=== PATIENT | female | born 1965 | race Two or more races ===

== ENCOUNTER → 2024-07-23 | Outpatient (CLI) | payer BC, SELFPAY ==
[2024-07-23 11:33] LABS: Basophils % (Auto) 0 % (0-2.5); Eosinophils # (Auto) 0.2 Thou/mm3 (0.0-0.5); Eosinophils % (Auto) 2 % (0-10); Hematocrit 44.2 % (36.0-46.0); Hemoglobin 15.1 g/dL (12.0-16.0); Immature Granulocytes % (Auto) 0 % (0-0); Immature Granulocytes Auto 0.04 Thou/mm3 (0.00-0.00); Lymphocytes # (Auto) 1.9 Thou/mm3 (1.0-4.8); Lymphocytes % (Auto) 16 % (10-50); Mean Corpuscular HGB Conc 34.2 g/dl (31.0-37.0); Mean Corpuscular Hemoglobin 29.7 pg (25.0-35.0); Mean Corpuscular Volume 87 fL (80-100); Monocytes # (Auto) 0.7 Thou/mm3 (0.0-0.8); Monocytes % (Auto) 6 % (0-12); Neutrophils # (Auto) 8.7 Thou/mm3 (1.8-7.7); Neutrophils % (Auto) 76 % (37-80); Nucleated Red Blood Cell % 0 /100 WBC (0); Platelet Count 256 Thou/mm3 (140-440); RDW Standard Deviation 43.7 fL (36.4-46.3); Red Blood Count 5.08 Miln/mm3 (4.00-5.20); White Blood Count 11.6 Thou/mm3 (3.6-11.0)
[2024-07-23 12:05] LABS: Alanine Aminotransferase 210 U/L (10-49); Albumin, Serum 4.3 gm/dL (3.5-5.0); Albumin/Globulin Ratio 1.7 (1.2-2.2); Alkaline Phosphatase 180 U/L (46-116); Amylase 530 U/L (30-118); Anion Gap 9 (7-16); Aspartate Amino Transferase 74 U/L (0-34); BUN/Creatinine Ratio 14 Ratio (12-20); Blood Urea Nitrogen 18 mg/dL (9-23); Calcium 9.4 mg/dL (8.3-10.6); Calcium (Corrected) 9.4 mg/dL (8.5-10.1); Carbon Dioxide 27.6 mMol/L (20.0-31.0); Chloride 101 mMol/L (98-107); Creatinine (Component) 1.3 mg/dL (0.6-1.3); Globulin 2.6 gm/dL (2.3-3.5); Glucose 124 mg/dL (74-106); Lipase 250 U/L (12-53); Osmolality,Calculated 278 (275-295); Potassium 3.4 mMol/L (3.4-5.1); Procalcitonin 0.05 ng/ml (0.0-0.49); Sodium 138 mMol/L (136-145); Total Protein 6.9 gm/dL (5.7-8.2); eGFR 48 See Note
== END | disposition home or self-care (01) ==
LOC: COPL 10:51
PROVIDERS: PCP Family Medicine; Referring Provider Family Medicine; Visit Provider Family Medicine
DX: K80.80 Other cholelithiasis without obstruction (principal)
CPT/HCPCS: 36415; 80053; 82150; 83690; 84145; 85025

== ENCOUNTER → 2024-07-24 | Outpatient (CLI) | payer BC, SELFPAY ==
--- NOTE | 2024-07-24 13:20 | XR_ITS ---
Examination: Abdomen sonogram, complete Date and time of exam: July 24, 2024 1327 hrs. Indications: Epigastric pain 4 days. Technique: Multiple real-time grayscale transabdominal sonographic images of the abdomen have been obtained. Findings: Cholelithiasis, gallbladder wall 0.9 cm Common bile duct 0.6 cm Pancreatic head 3.0 cm Liver 16.6 cm irregular contour fatty liver Normal hepatopedal portal venous oh Patent IVC Right kidney 9.3 cm cortex 1.3 cm Left kidney 10.0 cm 20 p.m. Moderate bilateral renal parenchymal lesion Spleen 11.0 cm Impression: Acute calculus cholecystitis Enlarged common bile duct 0.6 cm, recommend MRCP follow-up
== END | disposition home or self-care (01) ==
PROVIDERS: PCP Family Medicine; Referring Provider Family Medicine; Visit Provider Family Medicine
DX: K80.20 Calculus of gallbladder without cholecystitis without obstruction (principal); K83.8 Other specified diseases of biliary tract
CPT/HCPCS: 76700

== ENCOUNTER → 2024-07-31 | Outpatient (CLI) | payer BC, SELFPAY ==
--- NOTE | 2024-07-31 15:15 | XR_ITS ---
MRI abdomen, without contrast. MRCP Date and time of exam: July 31, 2024 at 1606 hours INDICATIONS: Upper abdominal pain nausea vomiting beginning 3 weeks ago, abdomen sonogram July 24, 2024 enlarged common bile duct 6 mm Technique: Multiple axial and coronal images of the abdomen have been obtained with the Siemens 1.5T MRI scanner. Images obtained included T1 weighted transverse images, T2-weighted transverse images, T2-weighted transverse images fat-suppressed, T2 weighted haste fat suppressed transverse images, T1 weighted images, in and out of phase images, T2-weighted coronal images, breath hold, T2 weighted haze coronal images as well as T2 weighted coronal thick slab images, MRCP. Findings: No intrahepatic biliary tract dilatation. Multiple gallstones Gallbladder wall does not appear thickened Common hepatic duct 6 mm Multiple 1 to 3 mm stones in the common hepatic common bile duct No pancreatic edema No ascites No hydronephrosis Aorta normal size IMPRESSION: Cholelithiasis, negative for cholecystitis Enlarged common bile duct with multiple 1 to 3 mm stones in the common hepatic common bile duct, consider ERCP follow-up
== END | disposition home or self-care (01) ==
LOC: SMRI 14:22
PROVIDERS: Referring Provider Family Medicine; Visit Provider Family Medicine
DX: K80.20 Calculus of gallbladder without cholecystitis without obstruction (principal); K83.8 Other specified diseases of biliary tract
CPT/HCPCS: S8037; 74181

== ENCOUNTER → 2024-08-23 | Outpatient (CLI) | payer BC, SELFPAY ==
[2024-08-23 13:28] LABS: Basophils % (Auto) 1 % (0-2.5); Eosinophils # (Auto) 0.3 Thou/mm3 (0.0-0.5); Eosinophils % (Auto) 4 % (0-10); Hematocrit 42.1 % (36.0-46.0); Immature Granulocytes % (Auto) 0 % (0-0); Immature Granulocytes Auto 0.02 Thou/mm3 (0.00-0.00); Lymphocytes # (Auto) 2.3 Thou/mm3 (1.0-4.8); Lymphocytes % (Auto) 30 % (10-50); Mean Corpuscular HGB Conc 33.3 g/dl (31.0-37.0); Mean Corpuscular Hemoglobin 29.5 pg (25.0-35.0); Mean Corpuscular Volume 89 fL (80-100); Monocytes # (Auto) 0.4 Thou/mm3 (0.0-0.8); Monocytes % (Auto) 5 % (0-12); Neutrophils # (Auto) 4.7 Thou/mm3 (1.8-7.7); Neutrophils % (Auto) 60 % (37-80); Nucleated Red Blood Cell % 0 /100 WBC (0); Platelet Count 258 Thou/mm3 (140-440); RDW Standard Deviation 45.9 fL (36.4-46.3); Red Blood Count 4.74 Miln/mm3 (4.00-5.20); White Blood Count 7.8 Thou/mm3 (3.6-11.0)
[2024-08-23 13:39] LABS: Glucose Estimated Average 108 mg/dL (80-131); Hemoglobin A1C 5.4 % Hgb (4.8-6.0)
[2024-08-23 13:48] LABS: Alanine Aminotransferase 14 U/L (10-49); Albumin, Serum 4.1 gm/dL (3.5-5.0); Albumin/Globulin Ratio 1.6 (1.2-2.2); Alkaline Phosphatase 80 U/L (46-116); Amylase 38 U/L (30-118); Anion Gap 6 (7-16); Aspartate Amino Transferase 15 U/L (0-34); BUN/Creatinine Ratio 17 Ratio (12-20); Bilirubin,Total 0.7 mg/dL (0.3-1.2); Blood Urea Nitrogen 19 mg/dL (9-23); Calcium 9.3 mg/dL (8.3-10.6); Calcium (Corrected) 9.3 mg/dL (8.5-10.1); Carbon Dioxide 27.3 mMol/L (20.0-31.0); Cardiac Risk Estimate 4.7 RATIO (3.7-5.6); Chloride 106 mMol/L (98-107); Cholesterol 215 mg/dL (132-200); Creatinine (Component) 1.1 mg/dL (0.6-1.3); Globulin 2.5 gm/dL (2.3-3.5); Glucose 99 mg/dL (74-106); HDL Cholesterol 46 mg/dL (40-60); LDL Cholesterol,Calculated 144 mg/dL (0-130); Lipase 28 U/L (12-53); Osmolality,Calculated 279 (275-295); Potassium 3.6 mMol/L (3.4-5.1); Sodium 139 mMol/L (136-145); Thyroid Stimulating Hormone 3.73 uIU/mL (0.55-4.78); Total Protein 6.6 gm/dL (5.7-8.2); Triglycerides 127 mg/dL (30-150); eGFR 59 See Note
== END | disposition home or self-care (01) ==
PROVIDERS: PCP Family Medicine; Referring Provider Nurse Practitioner Family; Visit Provider Nurse Practitioner Family
DX: Z00.00 Encounter for general adult medical examination without abnormal findings (principal); K85.10 Biliary acute pancreatitis without necrosis or infection; E11.65 Type 2 diabetes mellitus with hyperglycemia; E78.2 Mixed hyperlipidemia
CPT/HCPCS: 36415; 80053; 80061; 81001; 82043; 82150; 82570; 83036; 83690; 84443; 85025

== ENCOUNTER 2025-02-17 14:01 | Inpatient (IN) | payer BC, SELFPAY ==
[2025-02-17 14:14] VITALS: BP 174/111; PULSE 85; RESP 20; TEMP 37.1; O2SAT 95; BMI 54.8
--- NOTE | 2025-02-17 14:25 | XR_ITS ---
Examination: CT abdomen and pelvis without contrast. Coronal 3-D reconstructions. Sagittal 2-D reconstructions. Date and time of exam:February 17, 2025, 1606 hours INDICATIONS: Upper abdominal pain radiating to the right upper abdomen and vomiting today CTDI: vol (mGy): 22.8 DLP: (mGycm): 1518 Technique: Axial images of the abdomen have been obtained, 3 mm slice thickness Intravenous contrast material has not been administered. Low dose protocols were performed. One or more of the following dose reduction techniques were used; automated exposure control, adjustment of the mA and/or KV according to patient size, use of iterative reconstruction technique. Findings: Fatty infiltration throughout the liver, no focal liver or splenic lesions No definite gallstones Severe pancreatitis, no pseudocyst No pancreatic mass Moderate renal scar formation. Aorta normal size No pericecal inflammatory change No bowel obstruction Colonic diverticulosis, no diverticulitis 28 mm fat-containing umbilical hernia Bilateral ovarian follicular cystic masses Atrophic uterus Urinary bladder intact Moderate osteopenia IMPRESSION: Severe pancreatitis, no pseudocyst
--- NOTE | 2025-02-17 14:28 | PD.EDRME ---
Rapid Medical Screening Exam RME Arrival date/time: 02/17/25 14:01 59-year-old female with a history of pancreatitis presents to the emergency room with a chief complaint of left upper quadrant abdominal pain that radiates to the right upper quadrant and vomiting x 1 day I have greeted and performed a focused initial assessment of this patient. A comprehensive ED assessment and evaluation of the patient, analysis of all test results, and completion of the medical decision making process will be conducted by additional ED providers. Chief Complaint: Abdominal Pain Time Seen by Provider: 02/17/25 14:07 Vital signs: Vital Signs Temperature 98.8 F 02/17/25 14:14 Pulse Rate 85 02/17/25 14:14 Respiratory Rate 20 02/17/25 14:14 Blood Pressure 174/111 H 02/17/25 14:14 Pulse Oximetry (%) 95 02/17/25 14:14 Oxygen Delivery Method Room Air 02/17/25 14:14 Vital signs reviewed by provider: Yes
[2025-02-17 14:52] LABS: Basophils # (Auto) 0.0 Thou/mm3 (0.0-0.2); Basophils % (Auto) 0 % (0-2.5); Eosinophils # (Auto) 0.0 Thou/mm3 (0.0-0.5); Eosinophils % (Auto) 0 % (0-10); Hematocrit 45.5 % (36.0-46.0); Hemoglobin 14.9 g/dL (12.0-16.0); Immature Granulocytes Auto 0.06 Thou/mm3 (0.00-0.00); Lymphocytes # (Auto) 0.7 Thou/mm3 (1.0-4.8); Lymphocytes % (Auto) 5 % (10-50); Mean Corpuscular HGB Conc 32.7 g/dl (31.0-37.0); Mean Corpuscular Hemoglobin 29.8 pg (25.0-35.0); Mean Corpuscular Volume 91 fL (80-100); Monocytes # (Auto) 0.2 Thou/mm3 (0.0-0.8); Monocytes % (Auto) 2 % (0-12); Neutrophils # (Auto) 13.0 Thou/mm3 (1.8-7.7); Neutrophils % (Auto) 93 % (37-80); Nucleated Red Blood Cell # 0.00 Thou/mm3 (0.00-0.00); Nucleated Red Blood Cell % 0 /100 WBC (0); Platelet Count 290 Thou/mm3 (140-440); RDW Standard Deviation 46.2 fL (36.4-46.3); Red Blood Count 5.00 Miln/mm3 (4.00-5.20); White Blood Count 14.0 Thou/mm3 (3.6-11.0)
[2025-02-17 15:23] LABS: Alanine Aminotransferase 34 U/L (10-49); Albumin, Serum 4.3 gm/dL (3.5-5.0); Albumin/Globulin Ratio 1.6 (1.2-2.2); Alkaline Phosphatase 93 U/L (46-116); Anion Gap 7 (7-16); Aspartate Amino Transferase 39 U/L (0-34); BUN/Creatinine Ratio 17 Ratio (12-20); Bilirubin,Total 0.4 mg/dL (0.3-1.2); Blood Urea Nitrogen 19 mg/dL (9-23); Calcium 9.2 mg/dL (8.3-10.6); Calcium (Corrected) 9.2 mg/dL (8.5-10.1); Carbon Dioxide 28.5 mMol/L (20.0-31.0); Chloride 106 mMol/L (98-107); Creatinine (Component) 1.1 mg/dL (0.6-1.3); Estimated Creatinine Clearance 86.6 mL/min (>60); Globulin 2.7 gm/dL (2.3-3.5); Glucose 153 mg/dL (74-106); Lipase 1904 U/L (12-53); Osmolality,Calculated 286 (275-295); Potassium 4.3 mMol/L (3.4-5.1); Sodium 141 mMol/L (136-145); Total Protein 7.0 gm/dL (5.7-8.2); eGFR 59 See Note
[2025-02-17 15:50] VITALS: BP 174/111; PULSE 85
[2025-02-17] MEDS: METOCLOPRAMIDE 5 MG TABLET 10 MG PO (15:50)
[2025-02-17 17:27] VITALS: BP 163/87; PULSE 82; RESP 16; TEMP 36.9; O2SAT 97
--- NOTE | 2025-02-17 17:50 | EDNOTE_ITS ---
ED Abdominal Pain RME/HPI General Chief Complaint: Abdominal Pain Stated complaint: ABD PAIN 9/10, N/V Time seen by provider: 02/17/25 14:07 Arrival date/time: 02/17/25 14:01 RME / HPI RME / HPI narrative: 02/17/25 14:01 59-year-old female with a history of pancreatitis presents to the emergency room with a chief complaint of left upper quadrant abdominal pain that radiates to the right upper quadrant and vomiting x 1 day I have greeted and performed a focused initial assessment of this patient. A comprehensive ED assessment and evaluation of the patient, analysis of all test results, and completion of the medical decision making process will be conducted by additional ED providers. DR. SETH MAIN ED EVALUATION 59 year old female with history of asthma, hypertension, diabetes, hyperlipidemia, pancreatitis (Mach 2024), known cholelithiasis presents to the ED for evaluation of abdominal pain beginning at 07:00 AM today. Described as colicky in sensation that is located most to the left upper abdomen, rating 9/10 in severity. Accompanied by sweats, nausea, and vomiting. Reports taking Zofran at home for nausea/vomiting with some improvement. Patient during last pancreatitis flare was worked up on an outpatient basis and had an MRCP performed showing a stone in the CBD. States she was referred to a surgeon in [place] though did not undergo ERCP during that time. Related Data Previous Rx's ?Medication ?Instructions ?Recorded prednisone 50 mg tablet 50 mg PO QDAY #7 tabs Allergies Allergy/AdvReac Type Severity Reaction Status Date / Time aspirin Allergy Intermediate Hives Verified 02/17/25 14:04 Penicillins Allergy Intermediate Hives Verified 02/17/25 14:04 Review of Systems Review of Systems Systems Reviewed: All systems reviewed, normal except as documented Past Medical History Past Medical History CARDIAC: Positive Cardiac Disorders, Hypercholesterolemia and Hypertension RESPIRATORY: Positive Asthma GASTROINTESTINAL: Positive Gastrointestinal Disorders, Pancreatitis and Gall Bladder Disease GENITOURINARY: Positive Inguinal Hernia (7 YEARS OLD) REPRODUCTIVE: Positive Previous Pregnancies MUSCULOSKELETAL: Positive Arthritis ENT: Positive History of ENT Problems (WEARS GLASSES) ENDOCRINE: Positive Diabetes Mellitus Type 2 PSYCHO/SOCIAL: Positive Anxiety OTHER HISTORY: Positive Hospitalization Surgical History SURGICAL: Positive Abdominal Surgery and Section Social History SMOKING STATUS: Never smoker ED Exam Narrative Physical exam: GENERAL APPEARANCE: alert and oriented x 4, well-developed, well-nourished, morbidly obese HEENT: Normocephalic, atraumatic; pupils equal, round, reactive to light; EOMI; mucous membranes pink, moist; oropharynx clear NECK: Supple LUNGS: CTABL; no wheezes, no rales, no rhonchi HEART: Regular rate, regular rhythm; normal S1, S2; no murmurs ABDOMEN: non distended; normal BS; soft, left sided abdominal tenderness, no guarding, no rebound; no masses, no organomegaly, no hernia BACK: no CVA tenderness EXTREMITIES: atraumatic; no edema NEUROLOGIC: awake; alert and oriented x4; cranial nerves II-XII grossly intact; no focal sensory or motor deficits PSYCHIATRIC: appropriate mood and affect SKIN: warm, dry, normal color; no rashes Course Course Course Narrative: 1800p: I spoke with hospitalist team B for admission. Quality Measures none Orders Category Date Time Status Insert IV NOW Care 02/17/25 17:[address] abdomen pelvis wo con Stat Exams 02/17/25 14:25 Completed CBC Stat Lab 02/17/25 14:34 Completed CMP [Comprehensive Metabolic Panel] Stat Lab 02/17/25 14:34 Completed Lipase Stat Lab 02/17/25 14:34 Completed UA [Urinalysis] Stat Lab 02/17/25 14:25 Ordered Urine Culture Stat Lab 02/17/25 14:25 Ordered Metoclopramide [Reglan] Med 02/17/25 14:25 Discontinued 10 mg PO X1 ONE cloNIDine HCL [Catapres] Med 02/17/25 14:28 Discontinued 0.1 mg PO X1 ONE Vital Signs Vital signs: Vital Signs Temperature 98.8 F 02/17/25 14:14 Pulse Rate 85 02/17/25 14:14 Respiratory Rate 20 02/17/25 14:14 Blood Pressure 174/111 H 02/17/25 14:14 Pulse Oximetry (%) 95 02/17/25 14:14 Oxygen Delivery Method Room Air 02/17/25 14:14 Pulse ox is 95% on room air which is adequate. Abdominal Pain MDM MDM Narrative MDM Narrative:: Amber Castellano am scribing for and in the presence of Dr. Seth. Patient data External records reviewed:: [facility] previous records Clinical information provided by:: patient Social determinants that could affect healthcare access:: none Patient has the following chronic illnesses:: asthma, hypertension, diabetes, hyperlipidemia, pancreatitis (2024), known cholelithiasis How is presenting disease/condition affected by chronic disease/condition?: exacerbated by Evaluation data The following diagnostics were reviewed and interpreted by me:: lab results and radiology exam(s) Lab and/or radiology exams considered but not ordered:: None Interpretation Summary: Ordering Physician: Lee Murrell Date of Service: 02/17/25 Procedure(s): CT abdomen pelvis wo con Accession Number(s): [id number] cc: Guru Allen MD; Lee Murrell; Bhanu Booth MD~ Examination: CT abdomen and pelvis without contrast. Coronal 3-D reconstructions. Sagittal 2-D reconstructions. Date and time of exam:February 17, 2025, 1606 hours INDICATIONS: Upper abdominal pain radiating to the right upper abdomen and vomiting today CTDI: vol (mGy): 22.8 DLP: (mGycm): 1518 Technique: Axial images of the abdomen have been obtained, 3 mm slice thickness Intravenous contrast material has not been administered. Low dose protocols were performed. One or more of the following dose reduction techniques were used; automated exposure control, adjustment of the mA and/or KV according to patient size, use of iterative reconstruction technique. Findings: Fatty infiltration throughout the liver, no focal liver or splenic lesions No definite gallstones Severe pancreatitis, no pseudocyst No pancreatic mass Moderate renal scar formation. Aorta normal size No pericecal inflammatory change No bowel obstruction Colonic diverticulosis, no diverticulitis 28 mm fat-containing umbilical hernia Bilateral ovarian follicular cystic masses Atrophic uterus Urinary bladder intact Moderate osteopenia IMPRESSION: Severe pancreatitis, no pseudocyst Dictated By: Bhanu Booth MD Signed By: <Electronically signed by Bhanu Booth MD in OV> 02/17/25 1701 Medications / Prescriptions Medications or Prescriptions considered but not ordered:: None Medication administrations:: Medication Administration History Discontinued Medications Clonidine (Clonidine Hcl 0.1 Mg Tablet) 0.1 mg PO X1 ONE Stop: 02/17/25 14:29 Last Admin: 02/17/25 15:50 Dose: 0.1 mg Documented By: OA Metoclopramide HCl (Metoclopramide 5 Mg Tablet) 10 mg PO X1 ONE Stop: 02/17/25 14:26 Last Admin: 02/17/25 15:50 Dose: 10 mg Documented By: OA See above Consultations Consultation(s) initiated? (list below): Yes Consultation #1 (Physician, Specialty, Details): See course Diagnosis Differential diagnosis abdominal pain: abdominal pain and other (pancreatitis ) Most likely diagnosis given after review of the tests above:: Acute pancreatitis Admission Indicated Admission indicated?: indicated Admission Request Was there a request for admission?: Yes Admission Attestation Admission request attestation: Discussed case with [] from Hospitalist service regarding admission. Discussed patients ED course, exam findings, labs, and radiology results. The Hospitalist [agrees,declines] to accept the patient for admission. Disposition Plan Disposition Plan: Admit Discharge Plan Plan Patient Disposition: Admit Acute Care w/in Hospital Prescriptions/Referrals Prescriptions/Med Rec: No Action prednisone 50 mg tablet 50 mg PO QDAY Qty: 7 0RF Referrals: Guru Allen MD [Primary Care Provider, Family Practice] - In 1 week Problem List Clinical Impression: Acute pancreatitis Patient/Caregiver Discharge Instructions Print Language: Yi Stand Alone Forms: Irene Award Info., Patient Portal Info Letter
[2025-02-17 18:05] VITALS: BP 134/85; PULSE 83; RESP 22; TEMP 36.6; O2SAT 100
[2025-02-17] MEDS: HYDROmorphone INJ 2 MG/ML VIAL 1 MG IVP (18:10)
[2025-02-17] MEDS: SODIUM CHLORIDE 0.9% 1000 ML 1,000 ML 999 ML IV (18:10)
[2025-02-17] MEDS: ONDANSETRON INJ 2 MG/ML INJ 2 ML 4 MG IVP (18:10)
--- NOTE | 2025-02-17 18:33 | XR_ITS ---
Examination: Abdomen sonogram, Limited Date and time of exam: February 17 thousand 25, 1904 hrs. Indications: Right upper abdominal pain today with nausea vomiting, history pancreatitis Technique: Real-time isabel scale transabdominal sonographic images of the upper abdomen obtained. Findings: Multiple gallstones Normal gallbladder wall 0.2 cm Normal common bile duct 0.5 cm Pancreatic head 4.7 cm Liver 17.1 cm no focal liver lesions Normal hepatopedal portal venous oh Patent IVC Impression: Cholelithiasis, negative for cholecystitis No common bile duct stones Enlarged pancreas consistent with the diagnosis of severe pancreatitis on the CT abdomen study today Moderate hepatomegaly
--- NOTE | 2025-02-17 18:40 | PD.RESHP ---
Documentation for date of: 02/17/25 [facility] History of Present Illness History of present illness: 59-year-old female with a significant history of asthma, hypertension, diabetes, hyperlipidemia, and known cholelithiasis, who presents to the ED with acute-onset abdominal pain that began this morning around 7:00 AM. The pain is described as colicky and burning, initially rated 9/10 in severity but currently 6/10. It is primarily localized to the left upper quadrant, and has been consistent since its onset. The pain is associated with nausea, vomiting (8 times), chills, and sweats. She self-treated with Zofran this morning, but reports no improvement. Her last meal was at 8 PM last night, and her last bowel movement was this morning. She reports that lying on her right side offers relief. She reports a recent history of pancreatitis in July 2024, which, upon outpatient workup including an MRCP, revealed a stone in the common bile duct. She states she was informed by general surgury at [facility] that she needed an ERCP for follow-up but has not yet undergone the procedure. ED course: On presentation patient had vitals of 98.4 temperature, blood pressure 174/111, pulse 85, resp 20, 95% on room air. CT Abdo/pelvis showed severe pancreatitis, no pseudocyst. Notable labs include WBC 14.0, hemoglobin 14.9, sodium 141, potassium 4.3, creatinine 1.1, calcium 9.2, AST 39, ALT 34, lipase 1904. In ED patient was given metoclopramide 10 mg x 1, clonidine 0.1 mg x 1, Dilaudid 1 mg IV x 1, ondansetron 4 mg IV x 1, 1 L normal saline fluid bolus was given. Past medical history: As stated above. Allergies: Aspirin, penicillin Family history: Noncontributory Social history: No alcohol use, no smoking, no illicit drug use. Patient admitted for management of acute pancreatitis. Review of Systems Review of Systems Narrative Review of Systems: All systems reviewed negative unless stated otherwise above. Exam Vital Signs Temp Pulse Resp BP Pulse Ox O2 Del Method 97.9 F 83 22 H 134/85 H 100 Room Air 02/17/25 18:05 02/17/25 18:05 02/17/25 18:05 02/17/25 18:05 02/17/25 18:05 02/17/25 18:05 Narrative Exam General appearance: Alert and oriented x 4, well-developed, well-nourished, morbidly obese. HEENT: Normocephalic, atraumatic; pupils equal, round, reactive to light; EOMI; mucous membranes pink, moist; oropharynx clear. Lungs: CTABL; no wheezes, no rales, no rhonchi. Heart: Regular rate, regular rhythm; normal S1, S2; no murmurs. Abdomen: Non distended; normal BS; soft, left sided abdominal tenderness, no guarding, no rebound; no masses, no organomegaly, no hernia. Back: No CVA tenderness. Extremities: Atraumatic; no edema. Neurologic: Awake; alert and oriented x 4; cranial nerves II-XII grossly intact; no focal sensory or motor deficits; moving all 4 limbs Psychiatric: Appropriate mood and affect. Skin: Warm, dry, normal color; no rashes. Results: Labs 02/18/25 05:14 02/18/25 05:14 Labs: Short CBC 02/17/25 Range/Units 14:34 WBC 14.0 H (3.6-11.0) Thou/mm3 Hgb 14.9 (12.0-16.0) g/dL Hct 45.5 (36.0-46.0) % Plt Count 290 (140-440) Thou/mm3 BMP 02/17/25 14:34 Sodium 141 Potassium 4.3 Chloride 106 Carbon Dioxide 28.5 BUN 19 Creatinine 1.1 Glucose 153 H Calcium 9.2 Liver Function 02/17/25 Range/Units 14:34 Total Bilirubin 0.4 (0.3-1.2) mg/dL AST 39 H (0-34) U/L ALT 34 (10-49) U/L Alkaline Phosphatase 93 (46-116) U/L Albumin 4.3 (3.5-5.0) gm/dL Quality Measures Quality Measures none Medications Home Medications and Allergies Home Medications ?Medication ?Instructions ?Recorded ?Confirmed ?Type hydrochlorothiazide 25 mg tablet 25 mg PO DAILY Hypertension 02/17/25 02/17/25 History losartan 50 mg tablet 50 mg PO DAILY Hypertension 02/17/25 02/17/25 History Allergies Allergy/AdvReac Type Severity Reaction Status Date / Time aspirin Allergy Intermediate Hives Verified 02/17/25 14:04 Penicillins Allergy Intermediate Hives Verified 02/17/25 14:04 Visit Medications Albuterol/Ipratropium (Albuterol/Ipratropium (Duoneb) Rt Lin 3 Ml Nebu) 3 ml INH Q6HRRT PRN PRN Reason: WHEEZING Stop: 03/19/25 18:59 Dextrose (Dextrose 50%-Water Inj 50 Ml Syringe) 25 ml IV Q15MIN PRN PRN Reason: BG 50-70 responsive npo pt Stop: 03/19/25 18:31 Dextrose (Dextrose 50%-Water Inj 50 Ml Syringe) 50 ml IV Q15MIN PRN PRN Reason: BG <50 OR BG <70 & pt unresponsive Stop: 03/19/25 18:31 Glucagon (Glucagon Inj 1 Mg Vial) 1 mg IM Q15MIN PRN PRN Reason: BG <70, and no IV access Hydromorphone HCl (Hydromorphone Inj 2 Mg/Ml Vial) 0.5 mg IVP Q6HR PRN PRN Reason: Pain 7-9 Stop: 02/22/25 18:03 Sodium Chloride (Ns) 1,000 mls @ 999 mls/hr IV .Q1H1M ONE Stop: 02/17/25 19:01 Last Admin: 02/17/25 18:10 Dose: 999 mls/hr Lactated Ringer's (Lactated Ringers) 1,000 mls @ 200 mls/hr IV .Q5H MARLENI Stop: 02/18/25 04:33 Insulin Human Lispro (Insulin Lispro (Admelog) 1 Unit/0.01 Ml Unit) 0 unit SC Q6HR MARLENI; Protocol Stop: 03/20/25 00:00 Labetalol HCl (Labetalol Inj 5 Mg/Ml Vial 20 Ml) 10 mg IVP Q6HR PRN PRN Reason: Systolic BP >180 and HR >75 Stop: 03/19/25 18:34 Morphine Sulfate (Morphine Sulf Inj 4 Mg/Ml Vial) 0.5 mg IVP Q6HR PRN PRN Reason: Pain 4-6 Ondansetron HCl (Ondansetron Inj 2 Mg/Ml Inj 2 Ml) 4 mg IVP Q6H PRN; Protocol PRN Reason: NAUSEA OR VOMITING Stop: 03/19/25 18:03 Discontinued Medications Clonidine (Clonidine Hcl 0.1 Mg Tablet) 0.1 mg PO X1 ONE Stop: 02/17/25 14:29 Last Admin: 02/17/25 15:50 Dose: 0.1 mg Hydromorphone HCl (Hydromorphone Inj 2 Mg/Ml Vial) 1 mg IVP X1 ONE Stop: 02/17/25 17:59 Last Admin: 02/17/25 18:10 Dose: 1 mg Metoclopramide HCl (Metoclopramide 5 Mg Tablet) 10 mg PO X1 ONE Stop: 02/17/25 14:26 Last Admin: 02/17/25 15:50 Dose: 10 mg Ondansetron HCl (Ondansetron Inj 2 Mg/Ml Inj 2 Ml) 4 mg IVP X1 ONE; Protocol Stop: 02/17/25 17:59 Last Admin: 02/17/25 18:10 Dose: 4 mg Assessment & Plan Plan 59-year-old female with a significant history of asthma, hypertension, diabetes, hyperlipidemia, and known cholelithiasis presents to presents to the ED with acute-onset abdominal pain that started in AM. Patient admitted for the management of acute pancreatitis. #Acute pancreatitis, recurrent Lipase 1903 CT abdomen showed severe pancreatitis, no pseudocyst WBC 14 Initial abdominal pain 9 out of 10 which has improved to 6 out of 10 in ED after pain meds Known history of cholelithiasis Last acute pancreatitis episode in July 2024 Plan ? LR at 200 mL an hour ? Hydromorphone 0.5 IV every 6 hours as needed for pain 7-9 ? Morphine 0.5 mg IV every 6 hours as needed for pain 4-6 ? Zofran as needed ? Liver ultrasound ordered ? Lipid panel in a.m. #Non-insulin type 2 diabetes mellitus Last A1c 5.4 on 09/06 Not on any medications, just lifestyle intervention Plan ? Glucose checks ? Order sliding scale insulin if necessary #Hypertension Patient's home meds include hydrochlorothiazide 25 mg daily and losartan 50 mg daily Plan ? Labetalol 10 mg IV every 6 hours as needed ? Resume home medications when appropriate and not n.p.o. Health Maintenance: Diet: N.p.o. GI prophylaxis: None DVT prophylaxis: None at this time, reassess tmrw Antibiotics: None needed CODE STATUS: Full Disposition: MedSurg Case discussed with my attending Dr. Garrett, and senior resident, Dr. Yasemin Wilkinson MD PGY-1 Attending Provider Attestation/Addendum I attest that I was physically present for the evaluation, physical examination, lab and imaging review of the patient with the residents. I discussed the case with the residents and agree with the findings and plans of care as documented above. After examination of the patient and review of the clinical data I feel that this patient needs admission to the hospital for further treatment/evaluation Patient is a 59 years old female with past medical history of asthma, hypertension, diabetes, hyperlipidemia, cholelithiasis who presented to the ED with complaint of abdominal pain, mostly around left upper quadrant with associated nausea and vomiting along with chills. She took some Zofran without help. In the ED, Initial blood pressure was 170/111, rest of the vitals were within normal limits. CT abdomen/pelvis was done, showed severe pancreatitis, WBC count was 14.0, lipase level 1904. We will admit the patient for management of acute pancreatitis, we will start her on aggressive IV hydration, analgesic regimen, antiemetics. We will obtain liver ultrasound. Keeping patient n.p.o. until nausea resolves, once patient's nausea is better, we will start her on diet and advance slowly. Started on insulin regimen for diabetes. We will also resume home antihypertensives once reconciled. [place] Garrett MD
[2025-02-17 19:33] VITALS: BMI 56.7
[2025-02-17 20:00] VITALS: BP 161/82; PULSE 78; RESP 18; TEMP 36.2; O2SAT 98
[2025-02-17] MEDS: RINGERS LACTATED 1000 ML 1,000 ML 200 ML IV (20:10)
[2025-02-17] MEDS: MORPHINE SULF INJ 4 MG/ML VIAL 0.5 MG IVP (21:49)
[2025-02-17] MEDS: METOCLOPRAMIDE INJ 5 MG/ML VIAL 2 ML 10 MG IVP (21:50)
[2025-02-18] VITALS (9 sets, daily range): BP systolic 106–169; BP diastolic 67–95; PULSE 75–84; RESP 17–20; TEMP 36.5–37.2; O2SAT 94–98
[2025-02-18 04:55] LABS: Collection Type, Urine Clean Catch
[2025-02-18 05:15] LABS: Bacteria,Urine Rare; Bilirubin,Urine Negative (Negative); Blood,Urine Negative (Negative); Clarity,Urine Clear (Clear/Hazy); Color,Urine Yellow (Lt Yel-Yel); Glucose, Urine Negative (Negative); Hyaline Casts,Urine < 1 /hpf (0-1); Ketones,Urine Negative (Negative); Leukocyte Esterase,Urine Negative (Negative); Nitrite,Urine Negative (Negative); PH,Urine 5.5 (5.0-7.0); Protein,Urine Negative (Neg - Trace); RBC,Urine 1 /hpf (0-3); Specific Gravity,Urine 1.029 (1.001-1.035); Squamous Epithelial Cell,Urine 1 /hpf (0-5); Urobilinogen,Urine Negative mg/dL (0.0-1.0); WBC,Urine 1 /hpf (0-5)
[2025-02-18] MEDS: HYDROmorphone INJ 2 MG/ML VIAL 0.5 MG IVP ×3 (05:31→22:16)
[2025-02-18] MEDS: RINGERS LACTATED 1000 ML 1,000 ML 200 ML IV ×3 (05:31→19:37)
[2025-02-18 05:51] LABS: Basophils # (Auto) 0.0 Thou/mm3 (0.0-0.2); Basophils % (Auto) 0 % (0-2.5); Eosinophils # (Auto) 0.0 Thou/mm3 (0.0-0.5); Eosinophils % (Auto) 0 % (0-10); Hematocrit 38.6 % (36.0-46.0); Hemoglobin 12.7 g/dL (12.0-16.0); Immature Granulocytes Auto 0.05 Thou/mm3 (0.00-0.00); Lymphocytes # (Auto) 1.3 Thou/mm3 (1.0-4.8); Lymphocytes % (Auto) 11 % (10-50); Mean Corpuscular HGB Conc 32.9 g/dl (31.0-37.0); Mean Corpuscular Hemoglobin 30.5 pg (25.0-35.0); Mean Corpuscular Volume 93 fL (80-100); Monocytes # (Auto) 0.6 Thou/mm3 (0.0-0.8); Monocytes % (Auto) 5 % (0-12); Neutrophils # (Auto) 9.9 Thou/mm3 (1.8-7.7); Neutrophils % (Auto) 83 % (37-80); Nucleated Red Blood Cell # 0.00 Thou/mm3 (0.00-0.00); Nucleated Red Blood Cell % 0 /100 WBC (0); Platelet Count 244 Thou/mm3 (140-440); RDW Standard Deviation 47.7 fL (36.4-46.3); Red Blood Count 4.16 Miln/mm3 (4.00-5.20); White Blood Count 12.0 Thou/mm3 (3.6-11.0)
[2025-02-18 06:25] LABS: Alanine Aminotransferase 21 U/L (10-49); Albumin, Serum 3.5 gm/dL (3.5-5.0); Albumin/Globulin Ratio 1.5 (1.2-2.2); Alkaline Phosphatase 70 U/L (46-116); Anion Gap 8 (7-16); Aspartate Amino Transferase 19 U/L (0-34); BUN/Creatinine Ratio 14 Ratio (12-20); Bilirubin,Total 0.5 mg/dL (0.3-1.2); Blood Urea Nitrogen 14 mg/dL (9-23); Calcium 8.7 mg/dL (8.3-10.6); Calcium (Corrected) 9.1 mg/dL (8.5-10.1); Carbon Dioxide 27.6 mMol/L (20.0-31.0); Cardiac Risk Estimate 4.6 RATIO (3.7-5.6); Chloride 106 mMol/L (98-107); Cholesterol 187 mg/dL (132-200); Creatinine (Component) 1.0 mg/dL (0.6-1.3); Estimated Creatinine Clearance 97.3 mL/min (>60); Globulin 2.4 gm/dL (2.3-3.5); Glucose 124 mg/dL (74-106); HDL Cholesterol 41 mg/dL (40-60); LDL Cholesterol,Calculated 120 mg/dL (0-130); Magnesium 1.8 mg/dL (1.6-2.6); Osmolality,Calculated 284 (275-295); Phosphorous 3.3 mg/dL (2.4-5.1); Potassium 3.7 mMol/L (3.4-5.1); Sodium 142 mMol/L (136-145); Thyroid Stimulating Hormone 3.36 uIU/mL (0.55-4.78); Total Protein 5.9 gm/dL (5.7-8.2); Triglycerides 128 mg/dL (30-150); eGFR > 60 See Note
[2025-02-18] MEDS: ONDANSETRON INJ 2 MG/ML INJ 2 ML 4 MG IVP (12:30)
--- NOTE | 2025-02-18 13:08 | PC.NURSE ---
Made MD cabrera aware of pts current bp at 156/96-76 HR and about restarting her diuretic, per pt is receiving too much iv fluids and making her sick with abd pain and nauseated. Per MD gillis continue with fluids. Pt is having pain at this time Dilaudid given, and zofran for nausea.
--- NOTE | 2025-02-18 13:29 | ESCONSULT_ITS ---
HPI Consult details Consult date: 02/18/25 Reason for consultation narrative: Gallstone pancreatitis History of present illness: 59-year-old morbidly obese female with history of gallstone was admitted with worsening abdominal pain with nausea and vomiting. Pain is in epigastric and right upper quadrant rating to her back. She denies fever, chills, jaundice or discoloration in urine or stool. Her liver enzymes are unremarkable. She was noted to have multiple gallstones and CT scan revealed severe pancreatitis. MRCP revealed possible 1 to 3 mm common hepatic stones Review of Systems Constitutional Constitutional: Denies chills and Denies fever(s) Cardiovascular Cardiovascular: Denies chest pain Respiratory Respiratory: Denies cough Gastrointestinal Gastrointestinal: Reports abdominal pain, Reports nausea and Reports vomiting Genitourinary Genitourinary: Denies difficulty voiding Hematologic/Lymphatic Hematologic/Lymphatic: Denies easy bleeding and Denies easy bruising Past Medical History Surgical History OTHER SURGICAL HX: , inguinal hernia repair Social History SMOKING STATUS: Never smoker SUBSTANCE USE: does not use ALCOHOL: Never Meds Home Medications and Allergies Home Medications ?Medication ?Instructions ?Recorded ?Confirmed ?Type hydrochlorothiazide 25 mg tablet 25 mg PO DAILY Hypert ension 02/17/25 02/17/25 History losartan 50 mg tablet 50 mg PO DAILY Hypertension 02/17/25 02/17/25 History Allergies Allergy/AdvReac Type Severity Reaction Status Date / Time aspirin Allergy Intermediate Hives Verified 02/17/25 14:04 Penicillins Allergy Intermediate Hives Verified 02/17/25 14:04 Exam Vital Signs Temp Pulse Resp BP Pulse Ox O2 Del Method 98.4 F 76 17 156/93 H 98 Room Air 02/18/25 12:00 02/18/25 12:00 02/18/25 12:00 02/18/25 12:00 02/18/25 12:00 02/18/25 12:00 Constitutional Constitutional: no acute distress and morbidly obese Routine Abdominal Exam Comments: Abdomen is soft and nondistended. She has tenderness to palpation in the epigastric and right upper quadrant, no rebound tenderness or peritonitis at this time Results Results: Laboratory Laboratory results: results reviewed Results: Imaging Imaging narrative: Abdominal ultrasound, CT scan of abdomen and pelvis and MRCP images reviewed, radiologist interpretation noted Assessment & Plan Problem List (1) Biliary acute pancreatitis without necrosis or infection: Status: Acute Plan Keep patient n.p.o. with IV fluids. Will plan for laparoscopic possible open cholecystectomy with cholangiogram when pancreatitis improves. Consult GI for possible ERCP
--- NOTE | 2025-02-18 14:28 | ESPR_ITS ---
<Statement entered by Reyes Hazel MD - 02/18/25 15:59> I have personally seen and examined the patient. I agree with the medical student's assessment and plan as documented below. Reyes Hazel DO PGY-2 Internal Medicine - [facility] Documentation for date of: 02/18/25 Subjective Subjective Interval history: Patient complained of abdominal pain overnight. Today she was hypertensive and complained of headaches with nausea. She was not fully able to tolerate clear liquids due to ongoing abdominal pain. Denies fever, chills or vomiting. Exam Vital Signs Temp Pulse Resp BP Pulse Ox O2 Del Method 98.4 F 76 17 156/93 H 98 Room Air 02/18/25 12:00 02/18/25 12:00 02/18/25 12:00 02/18/25 12:00 02/18/25 12:00 02/18/25 12:00 Narrative Exam General: Patient alert, oriented, in no acute distress. HEENT: Normocephalic, atraumatic. PERRLA, EOMI, no scleral icterus or conjunctival injection. Oropharynx clear, mucous membranes moist. No JVD, no carotid bruits. Neck: Supple, trachea midline, no thyromegaly or lymphadenopathy. Cardiac: Regular rate and rhythm, normal S1/S2, no murmurs, rubs, or gallops. Peripheral pulses 2+ and symmetric. No peripheral edema. Lungs: Normal effort, clear to auscultation bilaterally, no wheezes, rales, or rhonchi. Abdomen: Morbidly obese, soft, nondistended, with tenderness over the left upper quadrant and epigastric area. No rebound or guarding noted. Normoactive bowel sounds present. No hepatosplenomegaly appreciated. Extremities: Warm, well-perfused, no clubbing, cyanosis, or edema. Full range of motion, no joint tenderness. Skin: Warm, dry, intact. No rashes, lesions, or ecchymoses. Neuro: Alert and oriented ?3. Speech fluent. Cranial nerves II?XII grossly intact. Motor 5/5 throughout, sensation intact. Objective Labs 02/18/25 05:14 02/18/25 05:14 Labs: Laboratory Results - last 24 hr 02/17/25 02/18/25 02/18/25 14:34 04:34 05:14 WBC 14.0 H 12.0 H RBC 5.00 4.16 Hgb 14.9 12.7 D Hct 45.5 38.6 MCV 91 93 MCH 29.8 30.5 MCHC 32.7 32.9 RDW Std Deviation 46.2 47.7 H Plt Count 290 244 D Neut % (Auto) 93 H 83 H Lymph % (Auto) 5 L 11 [place] % (Auto) 2 5 Eos % (Auto) 0 0 Baso % (Auto) 0 0 Neut # (Auto) 13.0 H 9.9 H Lymph # (Auto) 0.7 L 1.3 [place] # (Auto) 0.2 0.6 Eos # (Auto) 0.0 0.0 Baso # (Auto) 0.0 0.0 Immature Gran # (Auto) 0.06 H 0.05 H Absolute Nucleated RBC 0.00 0.00 Immature Gran % 0 0 Nucleated RBC % 0 0 Sodium 141 142 Potassium 4.3 3.7 D Chloride 106 106 Carbon Dioxide 28.5 27.6 Anion Gap 7 8 BUN 19 14 Creatinine 1.1 1.0 Estim Creat Clear Calc 86.6 97.3 eGFR 59 L > 60 BUN/Creatinine Ratio 17 14 Glucose 153 H 124 H Calculated Osmolality 286 284 Calcium 9.2 8.7 Corrected Calcium 9.2 9.1 Phosphorus 3.3 Magnesium 1.8 Total Bilirubin 0.4 0.5 AST 39 H 19 ALT 34 21 Alkaline Phosphatase 93 70 D Total Protein 7.0 5.9 Albumin 4.3 3.5 D Globulin 2.7 2.4 Albumin/Globulin Ratio 1.6 1.5 Triglycerides 128 Cholesterol 187 LDL Cholesterol, Calc 120 HDL Cholesterol 41 Cholesterol/HDL Ratio 4.6 Lipase 1904 H* TSH 3.36 Ur Collection Type Clean Catch Urine Color Yellow Urine Clarity Clear Urine pH 5.5 Ur Specific [place] 1.029 Urine Protein Negative Urine Glucose (UA) Negative Urine Ketones Negative Urine Blood Negative Urine Nitrite Negative Urine Bilirubin Negative Urine Urobilinogen (Auto) Negative Ur Leukocyte Esterase Negative Urine RBC 1 Urine WBC 1 Ur Squamous Epith Cells 1 Urine Bacteria Rare Hyaline Casts < 1 Quality Measures Quality Measures none Assessment & Plan Assessment Current Active Medications: Generic Name Dose Route Start Last Admin Trade Name Freq PRN Reason Stop Dose Admin Albuterol/Ipratropium 3 ml 02/17/25 18:33 Albuterol/Ipratropium (Duoneb) Rt Lin 3 Ml Nebu INH 03/19/25 18:59 Q6HRRT PRN WHEEZING Dextrose 25 ml 02/17/25 18:32 Dextrose 50%-Water Inj 50 Ml Syringe IV 03/19/25 18:31 Q15MIN PRN BG 50-70 responsive npo pt Dextrose 50 ml 02/17/25 18:32 Dextrose 50%-Water Inj 50 Ml Syringe IV 03/19/25 18:31 Q15MIN PRN BG <50 OR BG <70 & pt unresponsive Glucagon 1 mg 02/17/25 18:32 Glucagon Inj 1 Mg Vial IM Q15MIN PRN BG <70, and no IV access Hydromorphone HCl 0.5 mg 02/17/25 18:04 02/18/25 12:29 Hydromorphone Inj 2 Mg/Ml Vial IVP 02/22/25 18:03 0.5 mg Q6HR PRN Administration Pain 7-9 Lactated Ringer's 1,000 mls @ 200 mls/hr 02/18/25 10:34 02/18/25 10:39 Lactated Ringers IV 02/18/25 20:33 200 mls/hr .Q5H MARLENI Administration Insulin Human Lispro 0 unit 02/18/25 00:00 02/18/25 13:13 Insulin Lispro (Admelog) 1 Unit/0.01 Ml Unit SC 03/20/25 00:00 Not Given Q6HR MARLENI Protocol Labetalol HCl 10 mg 02/17/25 18:35 Labetalol Inj 5 Mg/Ml Vial 20 Ml IVP 03/19/25 18:34 Q6HR PRN Systolic BP >180 and HR >75 Losartan Potassium 50 mg 02/18/25 10:38 Losartan Potassium 25 Mg Tablet PO 03/20/25 10:34 DAILY MARLENI Morphine Sulfate 0.5 mg 02/17/25 18:32 02/17/25 21:49 Morphine Sulf Inj 4 Mg/Ml Vial IVP 0.5 mg Q6HR PRN Administration Pain 4-6 Ondansetron HCl 4 mg 02/17/25 18:04 02/18/25 12:30 Ondansetron Inj 2 Mg/Ml Inj 2 Ml IVP 03/19/25 18:03 4 mg Q6H PRN Administration NAUSEA OR VOMITING Protocol Plan 59-year-old female with a significant history of asthma, hypertension, diabetes, hyperlipidemia, and known cholelithiasis presents with acute-onset abdominal pain admitted for evaluation and management of gallstone pancreatitis. #Gallstone Pancreatitis Liver ultrasound revealed cholelithiasis without evidence of cholecystitis or common bile duct stones. The pancreas appeared enlarged, consistent with findings of severe pancreatitis noted on CT abdomen. Additionally, moderate hepatomegaly was observed. The patient?s WBC count has improved from 14 to 12, indicating a downtrending inflammatory response. Laboratory studies show markedly elevated lipase of 1904. The patient has known history of cholelithiasis and prior episode of acute pancreatitis in July 2024. Findings support the diagnosis of gallstone pancreatitis in the setting of known cholelithiasis. Will defer GI consult for ERCP at this time given normal common bile duct findings and absence of choledocholithiasis on imaging. Plan ? Continue LR at 200 mL/hour ? Hydromorphone 0.5 IV every 6 hours as needed for pain 7-9 ? Morphine 0.5 mg IV every 6 hours as needed for pain 4-6 ? Zofran as needed ? General surgery recs: Continue IV Fluids, Keep NPO, plan for laparoscopic possible open cholecystectomy with cholangiogram when pancreatitis improves, consult GI for ERCP. #Non-insulin type 2 diabetes mellitus Last A1c 5.4 on 09/06 Not on any medications, just lifestyle intervention Plan ? Glucose checks ? Order sliding scale insulin if necessary #Hypertension Patient's home meds include hydrochlorothiazide 25 mg daily and losartan 50 mg daily Plan ? Labetalol 10 mg IV every 6 hours as needed ? Resume Losartan 50 mg daily Health Maintenance: Diet: NPO GI prophylaxis: None DVT prophylaxis: None at this time, reassess tmrw Antibiotics: None needed CODE STATUS: Full Disposition: MedSurg Attending Provider Attestation/Addendum I attest that I was physically present for the evaluation, physical examination, lab and imaging review of the patient with the residents. I discussed the case with the residents and agree with the findings and plans of care as documented above. Patient seen and examined at bedside this morning. States that her abdominal pain has been improving compared to yesterday. Vital signs are stable except for mild hypertension. Started on clear liquid diet, stated had mild nausea after her diet this morning, we will continue to monitor. WBC count has improved to 12.0 from 14 yesterday. Chemistry panel remains stable. Liver ultrasound completed yesterday evening shows cholelithiasis without cholecystitis, no CBD stones, severe pancreatitis and moderate hepatomegaly. We will also obtain general surgery consult for gallstone pancreatitis. Chico Garrett MD
[2025-02-18] MEDS: LOSARTAN POTASSIUM 25 MG TABLET 50 MG PO (15:25)
--- NOTE | 2025-02-18 15:45 | PC.SS ---
SS met with patient regarding d/c plan. Pt is alert/oriented. Pt was admitted for Pancreatitis. Pt confirmed demographic and contact information is correct on facesheet. Pt resides with 2 kids. Pt ambulates independently without assistance or DME. Pt is ok with all ADLs. Patient?s pharmacy of choice is [facility] on [address]. Pt named her son, Hakeem Moreno medical decision maker if she is unable. Patient?s choice is to return home upon d/c. Pt does not have an advance directive, SS offered, and pt was receptive. Pt states she is diabetic, has glucometer, and test strips. Pt states she is not on dialysis. Pt states she follows up with PCP every 3 months. Patient's kids will provide transportation home. D/C plan: Return home Next of Kin: Hakeem Moreno, son, phone# [phone] or Dia Moreno, dtr, phone# [phone] PCP: Dr. Guru Allen Address: Correct on facesheet
[2025-02-19] VITALS (8 sets, daily range): BP systolic 117–145; BP diastolic 65–97; PULSE 67–87; RESP 17–20; TEMP 36.2–36.8; O2SAT 92–98
[2025-02-19 06:08] LABS: Basophils # (Auto) 0.0 Thou/mm3 (0.0-0.2); Basophils % (Auto) 0 % (0-2.5); Eosinophils # (Auto) 0.2 Thou/mm3 (0.0-0.5); Eosinophils % (Auto) 2 % (0-10); Hematocrit 35.4 % (36.0-46.0); Hemoglobin 11.8 g/dL (12.0-16.0); Immature Granulocytes Auto 0.03 Thou/mm3 (0.00-0.00); Lymphocytes # (Auto) 1.9 Thou/mm3 (1.0-4.8); Lymphocytes % (Auto) 21 % (10-50); Mean Corpuscular HGB Conc 33.3 g/dl (31.0-37.0); Mean Corpuscular Hemoglobin 30.6 pg (25.0-35.0); Mean Corpuscular Volume 92 fL (80-100); Monocytes # (Auto) 0.7 Thou/mm3 (0.0-0.8); Monocytes % (Auto) 8 % (0-12); Neutrophils # (Auto) 6.3 Thou/mm3 (1.8-7.7); Neutrophils % (Auto) 69 % (37-80); Nucleated Red Blood Cell # 0.00 Thou/mm3 (0.00-0.00); Nucleated Red Blood Cell % 0 /100 WBC (0); Platelet Count 200 Thou/mm3 (140-440); RDW Standard Deviation 47.3 fL (36.4-46.3); Red Blood Count 3.86 Miln/mm3 (4.00-5.20); White Blood Count 9.2 Thou/mm3 (3.6-11.0)
[2025-02-19 06:27] LABS: Alanine Aminotransferase 13 U/L (10-49); Albumin, Serum 3.4 gm/dL (3.5-5.0); Albumin/Globulin Ratio 1.6 (1.2-2.2); Alkaline Phosphatase 62 U/L (46-116); Anion Gap 7 (7-16); Aspartate Amino Transferase 12 U/L (0-34); BUN/Creatinine Ratio 13 Ratio (12-20); Bilirubin,Total 0.7 mg/dL (0.3-1.2); Blood Urea Nitrogen 10 mg/dL (9-23); Calcium 8.7 mg/dL (8.3-10.6); Calcium (Corrected) 9.2 mg/dL (8.5-10.1); Carbon Dioxide 28.6 mMol/L (20.0-31.0); Chloride 106 mMol/L (98-107); Creatinine (Component) 0.8 mg/dL (0.6-1.3); Estimated Creatinine Clearance 121.6 mL/min (>60); Globulin 2.1 gm/dL (2.3-3.5); Glucose 107 mg/dL (74-106); Osmolality,Calculated 282 (275-295); Potassium 3.9 mMol/L (3.4-5.1); Sodium 142 mMol/L (136-145); Total Protein 5.5 gm/dL (5.7-8.2); eGFR > 60 See Note
--- NOTE | 2025-02-19 07:16 | PD.SURPROG ---
Documentation for date of: 02/19/25 Subjective Subjective Narrative: Patient is seen and examined. Her pain is improving Exam Vital Signs Temp Pulse Resp BP Pulse Ox O2 Del Method FiO2 97.2 F 85 17 117/70 95 Room Air 98 02/19/25 04:00 02/19/25 04:00 02/19/25 04:00 02/19/25 04:00 02/19/25 04:00 02/19/25 04:00 02/18/25 19:37 Constitutional Constitutional: no acute distress Routine Abdominal Exam Comments: Abdomen is soft and nondistended. She still has tenderness to deep palpation in epigastric and right upper quadrant, no rebound tenderness or peritonitis at this time Assessment & Plan Assessment Additional comments: Gallstone pancreatitis. Liver enzymes are normal Plan Plan for laparoscopic possible open cholecystectomy today or tomorrow depending on the availability in the operating room. Risks include but not limited to infection, bleeding, injury to bowel, liver, stomach, bile duct, retained stone, bile leak, abdominal sepsis and or abdominal abscess, need for further procedure and or operation, pneumonia and blood clot discussed with the patient. Benefits and alternatives explained to her, her questions answered, she agreed and consented to proceed with the operation.
[2025-02-19] MEDS: RINGERS LACTATED 1000 ML 1,000 ML 200 ML IV ×2 (08:57→12:13)
--- NOTE | 2025-02-19 09:18 | PC.SS ---
Follow up note: Possible surgery for gallbladder. On IV fluids. Pt will return home upon dc.
--- NOTE | 2025-02-19 11:56 | ESPR_ITS ---
<Statement entered by Reyes Hazel MD - 02/19/25 18:10> I have personally seen and examined the patient. I agree with the medical student's assessment and plan as documented below. Reyes Hazel DO PGY-2 Internal Medicine - [facility] Documentation for date of: 02/19/25 Subjective Subjective Interval history: No acute events overnight. Patient reports feeling a lot of better. She had minimal abdominal pain overnight requiring pain medication. She was able to ambulate more in the hallways. Denies fever, chills or vomiting. Exam Vital Signs Temp Pulse Resp BP Pulse Ox O2 Del Method FiO2 97.3 F 78 17 132/76 H 95 Room Air 98 02/19/25 08:00 02/19/25 08:00 02/19/25 08:00 02/19/25 08:00 02/19/25 08:00 02/19/25 08:00 02/18/25 19:37 Narrative Exam General: Patient alert, oriented, in no acute distress. HEENT: Normocephalic, atraumatic. PERRLA, EOMI, no scleral icterus or conjunctival injection. Neck: Supple, trachea midline, no thyromegaly or lymphadenopathy. Cardiac: Regular rate and rhythm, normal S1/S2, no murmurs, rubs, or gallops. Peripheral pulses 2+ and symmetric. No peripheral edema. Lungs: Normal effort, clear to auscultation bilaterally, no wheezes, rales, or rhonchi. Abdomen: Morbidly obese, soft, nondistended, with mild tenderness over epigastric area. No rebound or guarding noted. Normoactive bowel sounds present. No hepatosplenomegaly appreciated. Extremities: Warm, well-perfused, no clubbing, cyanosis, or edema. Full range of motion, no joint tenderness. Skin: Warm, dry, intact. No rashes, lesions, or ecchymoses. Neuro: Alert and oriented ?3. Speech fluent. Cranial nerves II?XII grossly intact. Motor 5/5 throughout, sensation intact. Objective Labs 02/20/25 04:53 02/20/25 04:53 Labs: Laboratory Results - last 24 hr 02/19/25 05:14 WBC 9.2 RBC 3.86 L Hgb 11.8 L Hct 35.4 L MCV 92 MCH 30.6 MCHC 33.3 RDW Std Deviation 47.3 H Plt Count 200 D Neut % (Auto) 69 Lymph % (Auto) 21 [place] % (Auto) 8 Eos % (Auto) 2 Baso % (Auto) 0 Neut # (Auto) 6.3 Lymph # (Auto) 1.9 [place] # (Auto) 0.7 Eos # (Auto) 0.2 Baso # (Auto) 0.0 Immature Gran # (Auto) 0.03 H Absolute Nucleated RBC 0.00 Immature Gran % 0 Nucleated RBC % 0 Sodium 142 Potassium 3.9 Chloride 106 Carbon Dioxide 28.6 Anion Gap 7 BUN 10 Creatinine 0.8 Estim Creat Clear Calc 121.6 eGFR > 60 BUN/Creatinine Ratio 13 Glucose 107 H Calculated Osmolality 282 Calcium 8.7 Corrected Calcium 9.2 Total Bilirubin 0.7 AST 12 ALT 13 Alkaline Phosphatase 62 Total Protein 5.5 L Albumin 3.4 L Globulin 2.1 L Albumin/Globulin Ratio 1.6 Quality Measures Quality Measures none Assessment & Plan Assessment Current Active Medications: Generic Name Dose Route Start Last Admin Trade Name Freq PRN Reason Stop Dose Admin Albuterol/Ipratropium 3 ml 02/17/25 18:33 Albuterol/Ipratropium (Duoneb) Rt Lin 3 Ml Nebu INH 03/19/25 18:59 Q6HRRT PRN WHEEZING Dextrose 25 ml 02/17/25 18:32 Dextrose 50%-Water Inj 50 Ml Syringe IV 03/19/25 18:31 Q15MIN PRN BG 50-70 responsive npo pt Dextrose 50 ml 02/17/25 18:32 Dextrose 50%-Water Inj 50 Ml Syringe IV 03/19/25 18:31 Q15MIN PRN BG <50 OR BG <70 & pt unresponsive Glucagon 1 mg 02/17/25 18:32 Glucagon Inj 1 Mg Vial IM Q15MIN PRN BG <70, and no IV access Hydromorphone HCl 0.5 mg 02/17/25 18:04 02/18/25 22:16 Hydromorphone Inj 2 Mg/Ml Vial IVP 02/22/25 18:03 0.5 mg Q6HR PRN Administration Pain 7-9 Lactated Ringer's 1,000 mls @ 200 mls/hr 02/19/25 08:02 02/19/25 08:57 Lactated Ringers IV 02/19/25 18:01 200 mls/hr .Q5H MARLENI Administration Insulin Human Lispro 0 unit 02/18/25 00:00 02/19/25 05:51 Insulin Lispro (Admelog) 1 Unit/0.01 Ml Unit SC 03/20/25 00:00 Not Given Q6HR MARLENI Protocol Labetalol HCl 10 mg 02/17/25 18:35 Labetalol Inj 5 Mg/Ml Vial 20 Ml IVP 03/19/25 18:34 Q6HR PRN Systolic BP >180 and HR >75 Losartan Potassium 50 mg 02/18/25 10:38 02/19/25 09:38 Losartan Potassium 25 Mg Tablet PO 03/20/25 10:34 Not Given DAILY MARLENI Morphine Sulfate 0.5 mg 02/17/25 18:32 02/17/25 21:49 Morphine Sulf Inj 4 Mg/Ml Vial IVP 0.5 mg Q6HR PRN Administration Pain 4-6 Ondansetron HCl 4 mg 02/17/25 18:04 02/18/25 12:30 Ondansetron Inj 2 Mg/Ml Inj 2 Ml IVP 03/19/25 18:03 4 mg Q6H PRN Administration NAUSEA OR VOMITING Protocol Plan 59-year-old female with a significant history of asthma, hypertension, diabetes, hyperlipidemia, and known cholelithiasis presents with acute-onset abdominal pain admitted for evaluation and management of gallstone pancreatitis. #Gallstone Pancreatitis Liver ultrasound showed cholelithiasis without cholecystitis or CBD stones. The pancreas was enlarged, consistent with severe pancreatitis on CT. Moderate hepatomegaly was also noted. WBC improved from 14 to 8.5, and lipase was markedly elevated at 1904 on admission. With known cholelithiasis and a prior pancreatitis episode (July 2024), findings are consistent with gallstone pancreatitis. Will place patient NPO after midnight if the surgery is scheduled for tomorrow 02/20 and advance to clear liquids given her significant decrease in abdominal pain and patient stability. Plan ? Continue LR at 100 mL/hour ? Hydromorphone 0.5 IV every 6 hours as needed for pain 7-9 ? Morphine 0.5 mg IV every 6 hours as needed for pain 4-6 ? Zofran as needed ? General surgery recs: Plan for laparoscopic possible open cholecystectomy today or tomorrow depending on the availability in the operating room. - GI recs: Consult GI placed #Non-insulin type 2 diabetes mellitus Last A1c 5.4 on 09/06 Not on any medications, just lifestyle intervention Plan ? Glucose checks ? Order sliding scale insulin if necessary #Hypertension Patient's home meds include hydrochlorothiazide 25 mg daily and losartan 50 mg daily Plan ? Labetalol 10 mg IV every 6 hours as needed ? Resume Losartan 50 mg daily Health Maintenance: Diet: NPO GI prophylaxis: None DVT prophylaxis: None at this time, reassess tmrw Antibiotics: None needed CODE STATUS: Full Disposition: [facility] Patient seen and assessed under supervision of attending physician Dr. Garrett. Otf BROWN, Internal Medicine Attending Provider Attestation/Addendum I attest that I was physically present for the evaluation, physical examination, lab and imaging review of the patient with the residents. I discussed the case with the residents and agree with the findings and plans of care as documented above. [place] Garrett MD
[2025-02-19 12:03] LABS: INR 1.1 (0.9-1.3); Partial Thromboplastin Time 32.8 Seconds (22.0-36.0); Prothrombin Time 12.1 Seconds (9.0-12.2)
[2025-02-19] MEDS: RINGERS LACTATED 1000 ML 1,000 ML 100 ML IV (16:41)
[2025-02-19] MEDS: HYDROmorphone INJ 2 MG/ML VIAL 0.5 MG IVP (16:42)
--- NOTE | 2025-02-19 18:17 | ESCONSULT_ITS ---
HPI Data of Consult Requesting Physician: Chico Garrett MD Admitting Provider: Chico Garrett MD Attending Provider: Chico Garrett MD Primary Care Provider: Guru Allen MD Consult Narrative Reason for consult: does patient need ERCP with lap tejinder History of present illness: Ms Neal is a 59 year old woman with a history of HTN, asthma, hypertension, diabetes, hyperlipidemia, and known cholelithiasis (MRCP 07/2024 with 1-3mm common hepatic duct stones and dilated common hepatic duct)who presented on 02/17 with left upper quadrant to epigastric tenderness associated with nausea, nonbloody, bileous emesis, subjective fever and chills who was found to have severe pancreatitis (lipase 1904) on CT AP, Liver US with no stones in the common bile duct, and cholelithiasis, no cholecystitis. She was managed conservatively with fluids and NPO, Gen surg was consulted with Dr. Hairston who plans to take patient to surgery for lap tejinder (with possibility of open procedure). Consult question: Given pt has previously had 1-3 mm stones in the common hepatic duct and dilated duct, does pt need ERCP prior to lap tejinder? Surgical History: C section, tubal ligation, R hernia repair Social history: patient reports social drinking in the past but that she has not had alcohol in the past several years cc:: cc: Chico Garrett MD Review of Systems Review of Systems Narrative Review of Systems: as per hpi Exam Vital Signs Temp Pulse Resp BP Pulse Ox O2 Del Method FiO2 98.2 F 75 18 134/97 H 97 Room Air 98 02/19/25 16:00 02/19/25 16:00 02/19/25 16:00 02/19/25 16:00 02/19/25 16:00 02/19/25 16:00 02/18/25 19:37 Narrative Exam GENERAL: no acute distress, AAO x3, comfortably laying in bed HEENT: Head AT/ NC. Mucous membranes moist. PERRL. NECK: Supple, no lymphadenopathy, no carotid bruits. CARDIOVASCULAR: RRR. Normal S1/S2, No m/r/g. No pitting edema of bilateral LEs. RESPIRATORY: CTAB. No wheezing, rhonchi, crackles. GASTROINTESTINAL: Abdomen obese, soft, non tender no palpable masses. Bowel sounds present, no RUQ tenderness, Bonds sign negative. MUSCULOSKELETAL:? No cyanosis or edema, no visible joint swelling. NEUROLOGICAL: CN II-XII grossly intact. No focal deficits. Sensation intact, symmetric. PSYCHIATRIC: Awake and alert, not agitated, normal mood and affect. SKIN: No obvious rashes, no jaundice, normal turgor. Results Labs 02/19/25 05:14 02/19/25 05:14 Labs: Short CBC 02/19/25 Range/Units 05:14 WBC 9.2 (3.6-11.0) Thou/mm3 Hgb 11.8 L (12.0-16.0) g/dL Hct 35.4 L (36.0-46.0) % Plt Count 200 D (140-440) Thou/mm3 BMP 02/19/25 05:14 Sodium 142 Potassium 3.9 Chloride 106 Carbon Dioxide 28.6 BUN 10 Creatinine 0.8 Glucose 107 H Calcium 8.7 Liver Function 02/19/25 Range/Units 05:14 Total Bilirubin 0.7 (0.3-1.2) mg/dL AST 12 (0-34) U/L ALT 13 (10-49) U/L Alkaline Phosphatase 62 (46-116) U/L Albumin 3.4 L (3.5-5.0) gm/dL Quality Measures Quality Measures VTE prophylaxis Medications Home Medications and Allergies Home Medications ?Medication ?Instructions ?Recorded ?Confirmed ?Type hydrochlorothiazide 25 mg tablet 25 mg PO DAILY Hypert ension 02/17/25 02/17/25 History losartan 50 mg tablet 50 mg PO DAILY Hypertension 02/17/25 02/17/25 History Allergies Allergy/AdvReac Type Severity Reaction Status Date / Time aspirin Allergy Intermediate Hives Verified 02/17/25 14:04 Penicillins Allergy Intermediate Hives Verified 02/17/25 14:04 Visit Medications Albuterol/Ipratropium (Albuterol/Ipratropium (Duoneb) Rt Lin 3 Ml Nebu) 3 ml INH Q6HRRT PRN PRN Reason: WHEEZING Stop: 03/19/25 18:59 Dextrose (Dextrose 50%-Water Inj 50 Ml Syringe) 25 ml IV Q15MIN PRN PRN Reason: BG 50-70 responsive npo pt Stop: 03/19/25 18:31 Dextrose (Dextrose 50%-Water Inj 50 Ml Syringe) 50 ml IV Q15MIN PRN PRN Reason: BG <50 OR BG <70 & pt unresponsive Stop: 03/19/25 18:31 Glucagon (Glucagon Inj 1 Mg Vial) 1 mg IM Q15MIN PRN PRN Reason: BG <70, and no IV access Hydromorphone HCl (Hydromorphone Inj 2 Mg/Ml Vial) 0.5 mg IVP Q6HR PRN PRN Reason: Pain 7-9 Stop: 02/22/25 18:03 Last Admin: 02/19/25 16:42 Dose: 0.5 mg Lactated Ringer's (Lactated Ringers) 1,000 mls @ 100 mls/hr IV .Q10H MARLENI Stop: 02/20/25 08:53 Last Admin: 02/19/25 16:41 Dose: 100 mls/hr Insulin Human Lispro (Insulin Lispro (Admelog) 1 Unit/0.01 Ml Unit) 0 unit SC Q6HR MARLENI; Protocol Stop: 03/20/25 00:00 Last Admin: 02/19/25 18:00 Dose: Not Given Labetalol HCl (Labetalol Inj 5 Mg/Ml Vial 20 Ml) 10 mg IVP Q6HR PRN PRN Reason: Systolic BP >180 and HR >75 Stop: 03/19/25 18:34 Losartan Potassium (Losartan Potassium 25 Mg Tablet) 50 mg PO DAILY [facility] Stop: 03/20/25 10:34 Last Admin: 02/19/25 09:38 Dose: Not Given Morphine Sulfate (Morphine Sulf Inj 4 Mg/Ml Vial) 0.5 mg IVP Q6HR PRN PRN Reason: Pain 4-6 Last Admin: 02/17/25 21:49 Dose: 0.5 mg Ondansetron HCl (Ondansetron Inj 2 Mg/Ml Inj 2 Ml) 4 mg IVP Q6H PRN; Protocol PRN Reason: NAUSEA OR VOMITING Stop: 03/19/25 18:03 Last Admin: 02/18/25 12:30 Dose: 4 mg Discontinued Medications Acetaminophen (Acetaminophen 325 Mg Tablet) 650 mg PO X1 ONE Stop: 02/17/25 19:54 Last Admin: 02/17/25 19:53 Dose: Not Given Clonidine (Clonidine Hcl 0.1 Mg Tablet) 0.1 mg PO X1 ONE Stop: 02/17/25 14:29 Last Admin: 02/17/25 15:50 Dose: 0.1 mg Hydromorphone HCl (Hydromorphone Inj 2 Mg/Ml Vial) 1 mg IVP X1 ONE Stop: 02/17/25 17:59 Last Admin: 02/17/25 18:10 Dose: 1 mg Hydromorphone HCl (Hydromorphone Inj 2 Mg/Ml Vial) 0.25 mg IVP X1 ONE Stop: 02/17/25 21:42 Last Admin: 02/17/25 21:56 Dose: Not Given Sodium Chloride (Ns) 1,000 mls @ 999 mls/hr IV .Q1H1M ONE Stop: 02/17/25 19:01 Last Infusion: 02/17/25 19:04 Dose: Infused Lactated Ringer's (Lactated Ringers) 1,000 mls @ 200 mls/hr IV .Q5H MARLENI Stop: 02/18/25 04:33 Last Admin: 02/18/25 05:31 Dose: 200 mls/hr Magnesium Sulfate (Magnesium Sulfate Ivpb) 4 gm in 50 mls @ 12.5 mls/hr IV X1 ONE Stop: 02/18/25 12:31 Last Admin: 02/18/25 10:33 Dose: Not Given Lactated Ringer's (Lactated Ringers) 1,000 mls @ 200 mls/hr IV .Q5H MARLENI Stop: 02/18/25 20:33 Last Admin: 02/18/25 19:37 Dose: 200 mls/hr Lactated Ringer's (Lactated Ringers) 1,000 mls @ 200 mls/hr IV .Q5H MARLENI Stop: 02/19/25 18:01 Last Admin: 02/19/25 12:13 Dose: 200 mls/hr Losartan Potassium (Losartan Potassium 25 Mg Tablet) 50 mg PO DAILY [facility]LENI Stop: 03/21/25 08:59 Losartan Potassium (Losartan Potassium 25 Mg Tablet) 50 mg PO DAILY MARLEN[facility] Stop: 03/20/25 10:34 Losartan Potassium (Losartan Potassium 25 Mg Tablet) 50 mg PO X1 ONE Stop: 02/18/25 15:06 Last Admin: 02/18/25 15:25 Dose: 50 mg Metoclopramide HCl (Metoclopramide 5 Mg Tablet) 10 mg PO X1 ONE Stop: 02/17/25 14:26 Last Admin: 02/17/25 15:50 Dose: 10 mg Metoclopramide HCl (Metoclopramide Inj 5 Mg/Ml Vial 2 Ml) 10 mg IVP X1 ONE; Protocol Stop: 02/17/25 19:54 Last Admin: 02/17/25 21:50 Dose: 10 mg Ondansetron HCl (Ondansetron Inj 2 Mg/Ml Inj 2 Ml) 4 mg IVP X1 ONE; Protocol Stop: 02/17/25 17:59 Last Admin: 02/17/25 18:10 Dose: 4 mg Assessment & Plan Plan Ms Neal is a 59 year old woman with a history of HTN, asthma, hypertension, diabetes, hyperlipidemia, and known cholelithiasis (MRCP 07/2024 with 1-3mm common hepatic duct stones and dilated common hepatic duct)who presented on 02/17 with left upper quadrant to epigastric tenderness admitted for severe pancreatitis and associated choledocolithilasis of the common hepatic duct. Dr. Hairston is consulted, who plans to take patient for lap tejinder. Pancreatitis is improving with supportive treatment and pt is able to tolerate clear liquid diet. #Gallstone associated Severe Pancreatitis #Choledocolithiasis of the common hepatic duct patient has known cholelithiasis seen on mrcp done in 07/2024. She was also noted to have choledocolithiasis of the common hepatic duct. LFT wnl Lipase on admission 1904 likely that patient passed one of the stones which triggered the pancreatitis. - General Surgery, Dr. Hairston consulted with plans for lap cholecystectomy vs open cholecystectomy - MRCP ordered - recommend that pt proceeds to surgery and can have Dr. Hairston perform an intraoperative cholangiogram and the patient can have ERCP done post op. #Non-insulin type 2 diabetes mellitus #Hypertension - management per primary team Plan discussed with Dr. Yahir Obrien MD PGY1 Attending Provider Attestation/Addendum Patient evaluated imaging studies reviewed Case discussed with the patient Do recommend repeat MRCP because patient may have passed a stone and caused pancreatitis Or patient can still go ahead as planned cholecystectomy and have an intraoperative cholangiogram And if there is a defect in the common bile duct we can arrange a postoperative ERCP I will discuss the case with our operating surgeon Dr Hairston Thank you for the opportunity to participate in the care of this patient
[2025-02-20] VITALS (15 sets, daily range): BP systolic 106–160; BP diastolic 59–95; PULSE 17–79; RESP 12–96; TEMP 36.2–37.6; O2SAT 95–98; BMI 56.2
[2025-02-20] MEDS: RINGERS LACTATED 1000 ML 1,000 ML 100 ML IV (00:05)
[2025-02-20 05:52] LABS: Basophils # (Auto) 0.0 Thou/mm3 (0.0-0.2); Basophils % (Auto) 0 % (0-2.5); Eosinophils # (Auto) 0.3 Thou/mm3 (0.0-0.5); Eosinophils % (Auto) 4 % (0-10); Hematocrit 33.2 % (36.0-46.0); Hemoglobin 10.8 g/dL (12.0-16.0); Immature Granulocytes Auto 0.01 Thou/mm3 (0.00-0.00); Lymphocytes # (Auto) 1.7 Thou/mm3 (1.0-4.8); Lymphocytes % (Auto) 22 % (10-50); Mean Corpuscular HGB Conc 32.5 g/dl (31.0-37.0); Mean Corpuscular Hemoglobin 29.8 pg (25.0-35.0); Mean Corpuscular Volume 92 fL (80-100); Monocytes # (Auto) 0.6 Thou/mm3 (0.0-0.8); Monocytes % (Auto) 8 % (0-12); Neutrophils # (Auto) 4.9 Thou/mm3 (1.8-7.7); Neutrophils % (Auto) 66 % (37-80); Nucleated Red Blood Cell # 0.00 Thou/mm3 (0.00-0.00); Nucleated Red Blood Cell % 0 /100 WBC (0); Platelet Count 186 Thou/mm3 (140-440); RDW Standard Deviation 46.2 fL (36.4-46.3); Red Blood Count 3.62 Miln/mm3 (4.00-5.20); White Blood Count 7.4 Thou/mm3 (3.6-11.0)
[2025-02-20 06:12] LABS: Alanine Aminotransferase 11 U/L (10-49); Albumin, Serum 3.4 gm/dL (3.5-5.0); Albumin/Globulin Ratio 1.6 (1.2-2.2); Alkaline Phosphatase 59 U/L (46-116); Anion Gap 9 (7-16); Aspartate Amino Transferase 11 U/L (0-34); BUN/Creatinine Ratio 11 Ratio (12-20); Bilirubin,Total 0.8 mg/dL (0.3-1.2); Blood Urea Nitrogen 9 mg/dL (9-23); Calcium 8.6 mg/dL (8.3-10.6); Calcium (Corrected) 9.1 mg/dL (8.5-10.1); Carbon Dioxide 28.8 mMol/L (20.0-31.0); Chloride 106 mMol/L (98-107); Creatinine (Component) 0.8 mg/dL (0.6-1.3); Estimated Creatinine Clearance 121.4 mL/min (>60); Globulin 2.1 gm/dL (2.3-3.5); Glucose 90 mg/dL (74-106); Lipase 48 U/L (12-53); Osmolality,Calculated 285 (275-295); Potassium 3.9 mMol/L (3.4-5.1); Sodium 144 mMol/L (136-145); Total Protein 5.5 gm/dL (5.7-8.2); eGFR > 60 See Note
--- NOTE | 2025-02-20 11:30 | XR_ITS ---
EXAMINATION: Cholangiogram single view TECHNIQUE: AP portable supine abdomen single view Date and time: February 20, 2025, 1130 hours INDICATIONS: Post laparoscopic cholecystectomy FINDINGS: Contrast opacifies the intra and extrahepatic biliary tree There are 4 filling defects in the distal common bile duct, 5 mm, 4 mm, 3 mm, 3 mm IMPRESSION: Suspicious for small stones in the common bile duct
--- NOTE | 2025-02-20 12:15 | SUR.PHASEI ---
Pt. arrived to recovery via gurney, eyes open, AAOx3, responds to verbal commands, VSS, c/o pain 12/22, Dr. Abarca at bedside, provided pain medication, lung sounds clear, equal expansion antonio., pt. receiving 8 liters 02 via oxymask. Lap sites x4 to abdomen, dermabond intact, no active bleeding or redness noted. Report received from Dr. Abarca and Charles ARORA.
--- NOTE | 2025-02-20 12:19 | PD.SUROPNT ---
Date of Procedure 02/20/25 Pre Op Diagnosis Gallstone pancreatitis Post Op Diagnosis Cholelithiasis with cholecystitis Choledocholithiasis Procedure Laparoscopic cholecystectomy with intraoperative cholangiogram Findings Moderately distended gallbladder filled with gallstones and chronic cholecystitis. Cholangiogram revealed unremarkable biliary anatomy with multiple small distal CBD stones Procedure Description Patient was brought into the operating room in supine position. After administration of general endotracheal anesthesia abdomen was prepped and draped in standard surgical manner. A Veress needle was inserted through the umbilicus and pneumoperitoneum was obtained up to 15 mmHg. The Veress needle was then removed, a 5 mm infraumbilical incision was made and the 5mm trocar was inserted. Laparoscopic camera was placed. Under direct visualization a laparoscopic camera a 10 mm trocar was placed in subxiphoid and two 5 mm trocars placed in right upper quadrant. The gallbladder was identified and was noted to be moderately distended filled with stones and with chronic cholecystitis. It was retracted cephalad and laterally. Dissection started near the infundibulum of gallbladder where cystic duct and gallbladder junction clearly identified. The cystic duct was circumferentially dissected off the peritoneum and surrounding inflammatory tissue. The critical view of safety was clearly demonstrated. An Endo Clip placed near the cystic duct and gallbladder junction and a small ductotomy was performed. Cholangiogram catheter was placed through the ductotomy site and contrast was injected. Cholangiogram x-ray was obtained that revealed unremarkable biliary anatomy, with filling of contrast into the duodenum, and multiple small distal CBD stones. The cholangiogram catheter was removed and the cystic duct was divided between 2 endoclips proximally and one distally. The cystic artery was similarly divided between 2 endoclips proximally and 1 distally. The gallbladder was then from the liver bed using electrocautery. The gallbladder was then placed inside an Endo Catch and removed from the abdomen utilizing subxiphoid trocar site. The area was copiously and thoroughly washed and irrigated, all the fluid was suctioned and the suction fluid returned clear. Hemostasis achieved using electrocautery, also topical hemostatic agent using snow Surgicel placed at the gallbladder fossa to further assure hemostasis. Endoclips noted be in place and intact without any bleeding or any leakage. Hemostasis was adequate and satisfactory. The subxiphoid trocar sites fascial defect was closed with 0 Vicryl using Endo Closure device. Instruments and trocars removed, pneumoperitoneum was evacuated and the incisions closed with 4-0 Monocryl in subcuticular fashion. Instrument needle and sponge counts were all reported to be correct X2. Patient tolerated the procedure well, was extubated, breathing spontaneously and without difficulty and was transferred to postanesthesia care in stable condition. Patient will need to be evaluated by GI for an ERCP. Anesthesia GETA and local Pathology / specimen Other (Gallbladder and contents) Estimated Blood Loss 25 Condition Stable Disposition PACU Surgeon Mamadou Hairston MD Surgical Staff Operation Date: 02/20/25 11:30 Case Staff Anesthesiologist: Vlad Abarca RNveterinary technologist: Hilaria Akhtar
[2025-02-20] MEDS: fentaNYL CIT INJ 50 mCg/ML AMP 2ML IVP (12:31)
--- NOTE | 2025-02-20 12:50 | SUR.PHASEI ---
Pt. transferred to room 369 via VINAY smith, no c/o pain or nausea at this time, lap sites x4 CDI, pt. sitting up tolerating ice chips, IV patent and saline Leisa green Rn assumed care of pt.
--- NOTE | 2025-02-20 14:49 | ESPR_ITS ---
<Statement entered by Reyes Hazel MD - 02/20/25 18:10> Patient seen and assessed in hospital bed, status post laparoscopic cholecystectomy which was successful without any acute complications. GI is also following the case; moreover, patient has retained stones in common bile duct noted on cholangiogram done intraoperatively and will require ERCP. Patient does not have signs of cholangitis at this time and there is low suspicion for acute disease requiring immediate transfer. Gastroenterology will monitor the patient and we will follow-up on their recommendations. Advancing patient's diet and expect discharge within the next 24 to 48 hours. I have personally seen and examined the patient. I agree with the medical student's assessment and plan as documented below. Reyes Hazel DO PGY-2 Internal Medicine - [facility] Documentation for date of: 02/20/25 Subjective Subjective Interval history: No acute events overnight. She does not complain of abdominal pain. She was able to ambulate adequately. Denies fever, chills, vomiting or dysuria. Exam Vital Signs Temp Pulse Resp BP Pulse Ox O2 Del Method O2 Flow Rate 97.3 F 69 18 152/95 H 96 Room Air 6 02/20/25 13:07 02/20/25 13:07 02/20/25 13:07 02/20/25 13:07 02/20/25 13:07 02/20/25 13:07 02/20/25 12:25 FiO2 98 02/18/25 19:37 Narrative Exam General: Patient alert, oriented, in no acute distress. HEENT: Normocephalic, atraumatic. PERRLA, EOMI, no scleral icterus or conjunctival injection. Neck: Supple, trachea midline, no thyromegaly or lymphadenopathy. Cardiac: Regular rate and rhythm, normal S1/S2, no murmurs, rubs, or gallops. Peripheral pulses 2+ and symmetric. No peripheral edema. Lungs: Normal effort, clear to auscultation bilaterally, no wheezes, rales, or rhonchi. Abdomen: Morbidly obese, soft, nondistended, with mild tenderness over epigastric area. No rebound or guarding noted. Normoactive bowel sounds present. No hepatosplenomegaly appreciated. Extremities: Warm, well-perfused, no clubbing, cyanosis, or edema. Full range of motion, no joint tenderness. Skin: Warm, dry, intact. No rashes, lesions, or ecchymoses. Neuro: Alert and oriented ?3. Speech fluent. Cranial nerves II?XII grossly intact. Motor 5/5 throughout, sensation intact Objective Labs 02/20/25 04:53 02/20/25 04:53 Labs: Laboratory Results - last 24 hr 02/18/25 02/20/25 04:34 04:53 WBC 7.4 RBC 3.62 L Hgb 10.8 L Hct 33.2 L MCV 92 MCH 29.8 MCHC 32.5 RDW Std Deviation 46.2 Plt Count 186 Neut % (Auto) 66 Lymph % (Auto) 22 [place] % (Auto) 8 Eos % (Auto) 4 Baso % (Auto) 0 Neut # (Auto) 4.9 Lymph # (Auto) 1.7 [place] # (Auto) 0.6 Eos # (Auto) 0.3 Baso # (Auto) 0.0 Immature Gran # (Auto) 0.01 H Absolute Nucleated RBC 0.00 Immature Gran % 0 Nucleated RBC % 0 Sodium 144 Potassium 3.9 Chloride 106 Carbon Dioxide 28.8 Anion Gap 9 BUN 9 Creatinine 0.8 Estim Creat Clear Calc 121.4 eGFR > 60 BUN/Creatinine Ratio 11 L Glucose 90 Calculated Osmolality 285 Calcium 8.6 Corrected Calcium 9.1 Total Bilirubin 0.8 AST 11 ALT 11 Alkaline Phosphatase 59 Total Protein 5.5 L Albumin 3.4 L Globulin 2.1 L Albumin/Globulin Ratio 1.6 Lipase 48 D Ur Collection Type Clean Catch Urine Color Yellow Urine Clarity Clear Urine pH 5.5 Ur Specific [place]offe[place] 1.029 Urine Protein Negative Urine Glucose (UA) Negative Urine Ketones Negative Urine Blood Negative Urine Nitrite Negative Urine Bilirubin Negative Urine Urobilinogen (Auto) Negative Ur Leukocyte Esterase Negative Urine RBC 1 Urine WBC 1 Ur Squamous Epith Cells 1 Urine Bacteria Rare Hyaline Casts < 1 Quality Measures Quality Measures VTE prophylaxis Assessment & Plan Assessment Current Active Medications: Generic Name Dose Route Start Last Admin Trade Name Freq PRN Reason Stop Dose Admin Hydrocodone Bitart/Acetaminophen 1 tab 02/20/25 12:48 Hydrocodone/Apap 5/325 Tablet PO 02/25/25 12:47 Q6HR PRN PAIN 4-6 Albuterol/Ipratropium 3 ml 02/17/25 18:33 Albuterol/Ipratropium (Duoneb) Rt Lin 3 Ml Nebu INH 03/19/25 18:59 Q6HRRT PRN WHEEZING Dextrose 25 ml 02/17/25 18:32 Dextrose 50%-Water Inj 50 Ml Syringe IV 03/19/25 18:31 Q15MIN PRN BG 50-70 responsive npo pt Dextrose 50 ml 02/17/25 18:32 Dextrose 50%-Water Inj 50 Ml Syringe IV 03/19/25 18:31 Q15MIN PRN BG <50 OR BG <70 & pt unresponsive Docusate Sodium 100 mg 02/20/25 21:00 Docusate Sod 100 Mg Capsule PO 03/22/25 20:59 BID [facility] Protocol Glucagon 1 mg 02/17/25 18:32 Glucagon Inj 1 Mg Vial IM Q15MIN PRN BG <70, and no IV access Insulin Human Lispro 0 unit 02/18/25 00:00 02/20/25 13:13 Insulin Lispro (Admelog) 1 Unit/0.01 Ml Unit SC 03/20/25 00:00 Not Given Q6HR [facility] Protocol Labetalol HCl 10 mg 02/17/25 18:35 Labetalol Inj 5 Mg/Ml Vial 20 Ml IVP 03/19/25 18:34 Q6HR PRN Systolic BP >180 and HR >75 Losartan Potassium 50 mg 02/18/25 10:38 02/20/25 08:59 Losartan Potassium 25 Mg Tablet PO 03/20/25 10:34 Not Given DAILY [facility] Morphine Sulfate 3 mg 02/20/25 12:48 Morphine Sulf Inj 4 Mg/Ml Vial IVP 02/22/25 12:47 Q2H PRN PAIN SCALE 7-10 (Severe Ondansetron HCl 4 mg 02/17/25 18:04 02/18/25 12:30 Ondansetron Inj 2 Mg/Ml Inj 2 Ml IVP 03/19/25 18:03 4 mg Q6H PRN Administration NAUSEA OR VOMITING Protocol Plan 59-year-old female with a significant history of asthma, hypertension, diabetes, hyperlipidemia, and known cholelithiasis presents with acute-onset abdominal pain admitted for evaluation and management of gallstone pancreatitis. #Gallstone Pancreatitis Liver ultrasound showed cholelithiasis without cholecystitis or CBD stones. The pancreas was enlarged, consistent with severe pancreatitis on CT. Moderate hepatomegaly was also noted. WBC improved from 14 to 7.4, and lipase was markedly elevated at 1904 on admission now 48. With known cholelithiasis and a prior pancreatitis episode (July 2024), findings are consistent with gallstone pancreatitis. Patient WBC count, liver panel and T Bili was normal. Patient underwent laparoscopic cholecystectomy with intraoperative cholangiogram. Cholangiogram x-ray was obtained that revealed unremarkable biliary anatomy, with filling of contrast into the duodenum, and multiple small distal CBD stones. MRCP is deferred at this time due to cholangiogram findings confirming small distal CBD stones for which patient will undergo ERCP outpatient. Plan ? Advance Clear Liquid Diet as tolerated ? Order physical therapy ? Hydromorphone 0.5 IV every 6 hours as needed for pain 7-9 ? Morphine 0.5 mg IV every 6 hours as needed for pain 4-6 ? Zofran as needed ? General surgery and GI recs: Patient will need to be evaluated by GI for an ERCP. #Non-insulin type 2 diabetes mellitus Last A1c 5.4 on 09/06 Not on any medications, just lifestyle intervention Plan ? Glucose checks ? Order sliding scale insulin if necessary #Hypertension Patient's home meds include hydrochlorothiazide 25 mg daily and losartan 50 mg daily Plan ? Labetalol 10 mg IV every 6 hours as needed ? Resume Losartan 50 mg daily Health Maintenance: Diet: Clear Liquid Diet GI prophylaxis: None DVT prophylaxis: None at this time, reassess tmrw Antibiotics: None needed CODE STATUS: Full Disposition: [facility] Patient seen and assessed under supervision of attending physician Dr. Garrett. [facility], Internal Medicine Attending Provider Attestation/Addendum I attest that I was physically present for the evaluation, physical examination, lab and imaging review of the patient with the residents. I discussed the case with the residents and agree with the findings and plans of care as documented above. Patient seen and examined at bedside this evening. Underwent laparoscopic cholecystectomy with intraoperative cholangiogram with general surgery today. Was found to have cholelithiasis and chronic cholecystitis, cholangiogram showed unremarkable biliary anatomy with multiple small distal CBD stones. Recommended to have ERCP with GI. Vital signs are stable except for mild hypertension. Lab results are stable as well. Patient has been started on clear liquid diet, tolerating well. Pain has been manageable with analgesic regimen. We will discuss with GI regarding urgency of ERCP. Anticipate discharge in next 24 to 48 hours if ERCP can be done outpatient. Cihco Garrett MD
[2025-02-20] MEDS: MORPHINE SULF INJ 4 MG/ML VIAL 3 MG IVP ×2 (15:19→21:14)
[2025-02-20] MEDS: INSULIN LISPRO (AdmeLOG) 1 UNIT/0.01 ML UNIT SC ×2 (17:16→21:36)
--- NOTE | 2025-02-20 17:50 | PC.PT ---
PT eval only. Patient is xI with bed mobility, transfers, and ambulation with no AD. Patient is safe to ambulate to the bathroom and in the halls with no AD and no staff. RN made aware.
--- NOTE | 2025-02-20 19:37 | PC.NURSE ---
Report received, pt sitting at side of bed finishing up dinner no current complaints
--- NOTE | 2025-02-20 20:01 | ESPR_ITS ---
Documentation for date of: 02/20/25 Subjective Subjective Interval history: Case discussed with the operating surgeon Dr Hairston Intraoperative cholangiogram shows multiple filling defects in the distal common bile duct suggestive of stones LFTs remain normal The question becomes whether we need to have an inpatient transfer or wait next week as an outpatient ERCP Dr. Woodruff will be back in [facility] and I can set up an appointment for her with Dr. Woodruff and patient can be discharged home tomorrow if the LFTs remain normal Exam Vital Signs Temp Pulse Resp BP Pulse Ox O2 Del Method O2 Flow Rate 97.6 F 17 L 18 160/88 H 96 Room Air 6 02/20/25 16:00 02/20/25 16:00 02/20/25 16:00 02/20/25 16:00 02/20/25 16:00 02/20/25 16:00 02/20/25 12:25 FiO2 98 02/18/25 19:37 Objective Labs 02/20/25 04:53 02/20/25 04:53 Labs: Laboratory Results - last 24 hr 02/18/25 02/20/25 04:34 04:53 WBC 7.4 RBC 3.62 L Hgb 10.8 L Hct 33.2 L MCV 92 MCH 29.8 MCHC 32.5 RDW Std Deviation 46.2 Plt Count 186 Neut % (Auto) 66 Lymph % (Auto) 22 [place] % (Auto) 8 Eos % (Auto) 4 Baso % (Auto) 0 Neut # (Auto) 4.9 Lymph # (Auto) 1.7 [place] # (Auto) 0.6 Eos # (Auto) 0.3 Baso # (Auto) 0.0 Immature Gran # (Auto) 0.01 H Absolute Nucleated RBC 0.00 Immature Gran % 0 Nucleated RBC % 0 Sodium 144 Potassium 3.9 Chloride 106 Carbon Dioxide 28.8 Anion Gap 9 BUN 9 Creatinine 0.8 Estim Creat Clear Calc 121.4 eGFR > 60 BUN/Creatinine Ratio 11 L Glucose 90 Calculated Osmolality 285 Calcium 8.6 Corrected Calcium 9.1 Total Bilirubin 0.8 AST 11 ALT 11 Alkaline Phosphatase 59 Total Protein 5.5 L Albumin 3.4 L Globulin 2.1 L Albumin/Globulin Ratio 1.6 Lipase 48 D Ur Collection Type Clean Catch Urine Color Yellow Urine Clarity Clear Urine pH 5.5 Ur Specific Solomon 1.029 Urine Protein Negative Urine Glucose (UA) Negative Urine Ketones Negative Urine Blood Negative Urine Nitrite Negative Urine Bilirubin Negative Urine Urobilinogen (Auto) Negative Ur Leukocyte Esterase Negative Urine RBC 1 Urine WBC 1 Ur Squamous Epith Cells 1 Urine Bacteria Rare Hyaline Casts < 1 Impressions Impression: Choledocholithiasis found during the intraoperative cholangiogram Status postcholecystectomy for symptomatic cholelithiasis Plan Liver panel tomorrow morning If normal patient can be discharged to be seen as an outpatient with a scheduled appointment for Dr. Woodruff Assessment & Plan Time Spent With Patient Time: Total time spent is greater than 50% in coordination of care (as documented) at patient's floor/unit and/or counseling patient:
[2025-02-20] MEDS: DOCUSATE SOD 100 MG CAPSULE PO (21:15)
--- NOTE | 2025-02-20 21:15 | PC.NURSE ---
Dr. Sinclair in to see pt, plan to see him in office on Monday-will set up for ERCP
[2025-02-21] VITALS (9 sets, daily range): BP systolic 115–159; BP diastolic 63–97; PULSE 65–83; RESP 18–98; TEMP 36.1–37; O2SAT 96–99
--- NOTE | 2025-02-21 00:20 | PC.NURSE ---
Pt out walking in halls
[2025-02-21] MEDS: MORPHINE SULF INJ 4 MG/ML VIAL 3 MG IVP ×3 (03:59→23:46)
[2025-02-21 05:50] LABS: Basophils # (Auto) 0.0 Thou/mm3 (0.0-0.2); Basophils % (Auto) 0 % (0-2.5); Eosinophils # (Auto) 0.0 Thou/mm3 (0.0-0.5); Eosinophils % (Auto) 0 % (0-10); Hematocrit 34.3 % (36.0-46.0); Hemoglobin 11.6 g/dL (12.0-16.0); Immature Granulocytes Auto 0.04 Thou/mm3 (0.00-0.00); Lymphocytes # (Auto) 0.7 Thou/mm3 (1.0-4.8); Lymphocytes % (Auto) 9 % (10-50); Mean Corpuscular HGB Conc 33.8 g/dl (31.0-37.0); Mean Corpuscular Hemoglobin 30.8 pg (25.0-35.0); Mean Corpuscular Volume 91 fL (80-100); Monocytes # (Auto) 0.4 Thou/mm3 (0.0-0.8); Monocytes % (Auto) 5 % (0-12); Neutrophils # (Auto) 7.4 Thou/mm3 (1.8-7.7); Neutrophils % (Auto) 86 % (37-80); Nucleated Red Blood Cell # 0.00 Thou/mm3 (0.00-0.00); Nucleated Red Blood Cell % 0 /100 WBC (0); Platelet Count 184 Thou/mm3 (140-440); RDW Standard Deviation 44.9 fL (36.4-46.3); Red Blood Count 3.77 Miln/mm3 (4.00-5.20); White Blood Count 8.6 Thou/mm3 (3.6-11.0)
[2025-02-21 06:10] LABS: Alanine Aminotransferase 44 U/L (10-49); Albumin, Serum 4.0 gm/dL (3.5-5.0); Albumin/Globulin Ratio 1.4 (1.2-2.2); Alkaline Phosphatase 72 U/L (46-116); Anion Gap 11 (7-16); Aspartate Amino Transferase 48 U/L (0-34); BUN/Creatinine Ratio 11 Ratio (12-20); Bilirubin,Total 0.6 mg/dL (0.3-1.2); Blood Urea Nitrogen 10 mg/dL (9-23); Calcium 9.3 mg/dL (8.3-10.6); Calcium (Corrected) 9.3 mg/dL (8.5-10.1); Carbon Dioxide 25.3 mMol/L (20.0-31.0); Chloride 104 mMol/L (98-107); Creatinine (Component) 0.9 mg/dL (0.6-1.3); Estimated Creatinine Clearance 107.9 mL/min (>60); Globulin 2.8 gm/dL (2.3-3.5); Glucose 119 mg/dL (74-106); Osmolality,Calculated 279 (275-295); Potassium 4.1 mMol/L (3.4-5.1); Sodium 140 mMol/L (136-145); Total Protein 6.8 gm/dL (5.7-8.2); eGFR > 60 See Note
--- NOTE | 2025-02-21 08:36 | PC.SS ---
Follow up note: Possible d/c home today. Pending Dr. Sinclair's recommendations.
[2025-02-21] MEDS: LOSARTAN POTASSIUM 25 MG TABLET 50 MG PO (09:05)
[2025-02-21] MEDS: DOCUSATE SOD 100 MG CAPSULE PO ×2 (09:06→20:38)
--- NOTE | 2025-02-21 13:43 | PD.SURPROG ---
Documentation for date of: 02/21/25 Subjective Subjective Narrative: Patient is seen and examined. Her pain is improving. She is tolerating diet well Exam Vital Signs Temp Pulse Resp BP Pulse Ox O2 Del Method O2 Flow Rate 97.0 F 65 19 145/97 H 99 Room Air 6 02/21/25 12:00 02/21/25 12:00 02/21/25 12:00 02/21/25 12:00 02/21/25 12:00 02/21/25 08:00 02/20/25 12:25 FiO2 98 02/18/25 19:37 Constitutional Constitutional: no acute distress Routine Abdominal Exam Comments: Abdomen is soft and nondistended. Incisions are clean, dry and intact Assessment & Plan Assessment Additional comments: Postop day #1 status post laparoscopic cholecystectomy with cholangiogram. Cholangiogram revealed multiple small distal CBD stones, her liver enzymes are normal. Patient was evaluated by Dr. Sinclair who recommended follow-up as an outpatient for ERCP Plan Patient can be discharged from surgical standpoint. Follow-up with Dr Hairston in 2 weeks PROCEDURES: Procedures Laparoscopic cholecystectomy with intraoperative cholangiogram
--- NOTE | 2025-02-21 15:20 | ESPR_ITS ---
<Statement entered by Reyes Hazel MD - 02/21/25 17:38> Patient seen and assessed in hospital bed denies having any concerning symptoms at this time; moreover, will advance diet to soft. Patient's LFTs did increase but she does not have any signs of cholangitis at this time. Cholangiogram intraoperatively did show retained subcentimeter gallstones in the common bile duct. Will follow-up with gastroenterology recommendations regarding either transfer or outpatient follow-up for ERCP. Will continue monitoring the patient postop day 1 and expect discharge within the next 24 hours. I have personally seen and examined the patient. I agree with the medical student's assessment and plan as documented below. Reyes Hazle DO PGY-2 Internal Medicine - [facility] Documentation for date of: 02/21/25 Subjective Subjective Interval history: No acute events overnight. Patient is doing well with markedly improved abdominal pain. She is ambulating. She has not had a bowel movement. She is tolerating her clear liquid diet well. Exam Vital Signs Temp Pulse Resp BP Pulse Ox O2 Del Method O2 Flow Rate 97.0 F 65 19 145/97 H 99 Room Air 6 02/21/25 12:00 02/21/25 12:00 02/21/25 12:00 02/21/25 12:00 02/21/25 12:00 02/21/25 08:00 02/20/25 12:25 FiO2 98 02/18/25 19:37 Narrative Exam General: Patient alert, oriented, in no acute distress. HEENT: Normocephalic, atraumatic. PERRLA, EOMI, no scleral icterus or conjunctival injection. Neck: Supple, trachea midline, no thyromegaly or lymphadenopathy. Cardiac: Regular rate and rhythm, normal S1/S2, no murmurs, rubs, or gallops. Peripheral pulses 2+ and symmetric. No peripheral edema. Lungs: Normal effort, clear to auscultation bilaterally, no wheezes, rales, or rhonchi. Abdomen: Morbidly obese, soft, nondistended, with mild tenderness over epigastric area. No rebound or guarding noted. Normoactive bowel sounds present. No hepatosplenomegaly appreciated. Surgical incision clean, dry and intact, no erythema, drainage or swelling noted. Extremities: Warm, well-perfused, no clubbing, cyanosis, or edema. Full range of motion, no joint tenderness. Skin: Warm, dry, intact. No rashes, lesions, or ecchymoses. Neuro: Alert and oriented ?3. Speech fluent. Cranial nerves II?XII grossly intact. Motor 5/5 throughout, sensation intact Objective Labs 02/21/25 05:08 02/21/25 05:08 Labs: Laboratory Results - last 24 hr 02/21/25 05:08 WBC 8.6 RBC 3.77 L Hgb 11.6 L Hct 34.3 L MCV 91 MCH 30.8 MCHC 33.8 RDW Std Deviation 44.9 Plt Count 184 Neut % (Auto) 86 H Lymph % (Auto) 9 L [place] % (Auto) 5 Eos % (Auto) 0 Baso % (Auto) 0 Neut # (Auto) 7.4 Lymph # (Auto) 0.7 L [place] # (Auto) 0.4 Eos # (Auto) 0.0 Baso # (Auto) 0.0 Immature Gran # (Auto) 0.04 H Absolute Nucleated RBC 0.00 Immature Gran % 1 H Nucleated RBC % 0 Sodium 140 Potassium 4.1 Chloride 104 Carbon Dioxide 25.3 Anion Gap 11 BUN 10 Creatinine 0.9 Estim Creat Clear Calc 107.9 eGFR > 60 BUN/Creatinine Ratio 11 L Glucose 119 H Calculated Osmolality 279 Calcium 9.3 Corrected Calcium 9.3 Total Bilirubin 0.6 AST 48 H ALT 44 Alkaline Phosphatase 72 D Total Protein 6.8 Albumin 4.0 D Globulin 2.8 Albumin/Globulin Ratio 1.4 Quality Measures Quality Measures VTE prophylaxis Assessment & Plan Assessment Current Active Medications: Generic Name Dose Route Start Last Admin Trade Name Freq PRN Reason Stop Dose Admin Hydrocodone Bitart/Acetaminophen 1 tab 02/20/25 12:48 Hydrocodone/Apap 5/325 Tablet PO 02/25/25 12:47 Q6HR PRN PAIN 4-6 Albuterol/Ipratropium 3 ml 02/17/25 18:33 Albuterol/Ipratropium (Duoneb) Rt Lin 3 Ml Nebu INH 03/19/25 18:59 Q6HRRT PRN WHEEZING Dextrose 25 ml 02/17/25 18:32 Dextrose 50%-Water Inj 50 Ml Syringe IV 03/19/25 18:31 Q15MIN PRN BG 50-70 responsive npo pt Dextrose 50 ml 02/17/25 18:32 Dextrose 50%-Water Inj 50 Ml Syringe IV 03/19/25 18:31 Q15MIN PRN BG <50 OR BG <70 & pt unresponsive Docusate Sodium 100 mg 02/20/25 21:00 02/21/25 09:06 Docusate Sod 100 Mg Capsule PO 03/22/25 20:59 100 mg BID MARLENI Administration Protocol Glucagon 1 mg 02/17/25 18:32 Glucagon Inj 1 Mg Vial IM Q15MIN PRN BG <70, and no IV access Insulin Human Lispro 0 unit 02/20/25 17:00 02/21/25 12:00 Insulin Lispro (Admelog) 1 Unit/0.01 Ml Unit SC 03/22/25 16:59 Not Given ACHS MARLENI Protocol Labetalol HCl 10 mg 02/17/25 18:35 Labetalol Inj 5 Mg/Ml Vial 20 Ml IVP 03/19/25 18:34 Q6HR PRN Systolic BP >180 and HR >75 Losartan Potassium 50 mg 02/18/25 10:38 02/21/25 09:05 Losartan Potassium 25 Mg Tablet PO 03/20/25 10:34 50 mg DAILY MARLENI Administration Morphine Sulfate 3 mg 02/20/25 12:48 02/21/25 12:11 Morphine Sulf Inj 4 Mg/Ml Vial IVP 02/22/25 12:47 3 mg Q2H PRN Administration PAIN SCALE 7-10 (Severe Ondansetron HCl 4 mg 02/17/25 18:04 02/18/25 12:30 Ondansetron Inj 2 Mg/Ml Inj 2 Ml IVP 03/19/25 18:03 4 mg Q6H PRN Administration NAUSEA OR VOMITING Protocol Plan 59-year-old female with a significant history of asthma, hypertension, diabetes, hyperlipidemia, and known cholelithiasis presents with acute-onset abdominal pain admitted for evaluation and management of gallstone pancreatitis. #Gallstone Pancreatitis s/p Laparoscopic Cholecystectomy w/ Cholangiogram Patient is post-op Day 1 s/p laparoscopic cholecystectomy with intraoperative cholangiogram. Preoperative imaging showed cholelithiasis without cholecystitis or CBD stones, an enlarged pancreas consistent with severe pancreatitis, and moderate hepatomegaly. Intraoperative cholangiogram demonstrated normal biliary anatomy and four small distal CBD stones. LFTs today revealed mildly elevated AST (48) with normal ALT and ALP. There is concern for retained CBD stones and possible evolving cholangitis; will await GI recommendations for outpatient vs. inpatient ERCP. Plan ? Advance diet as tolerated to soft diet ? Continue Physical therapy ? Hydromorphone 0.5 IV every 6 hours as needed for pain 7-9 ? Morphine 0.5 mg IV every 6 hours as needed for pain 4-6 ? Zofran as needed ? General surgery recs: followup outpatient with Dr. Hairston in 2 weeks. ? Pending further GI recommendations #Non-insulin type 2 diabetes mellitus Last A1c 5.4 on 09/06 Not on any medications, just lifestyle intervention Plan ? Glucose checks ? Order sliding scale insulin if necessary #Hypertension Patient's home meds include hydrochlorothiazide 25 mg daily and losartan 50 mg daily Plan ? Labetalol 10 mg IV every 6 hours as needed ? Resume Losartan 50 mg daily Health Maintenance: Diet: Clear Liquid Diet GI prophylaxis: None DVT prophylaxis: None at this time, reassess tmrw Antibiotics: None needed CODE STATUS: Full Disposition: [facility] Patient seen and assessed under supervision of attending physician Dr. Finley. Otf López [facility] [place] Attending Provider Attestation/Addendum I have examined the patient, reviewed labs and imaging findings, discussed the case with the resident(s), and reviewed entered orders. I agree with the plan of care as outlined in this note. Dr. Tushar MD
--- NOTE | 2025-02-21 18:38 | PD.IMPROG ---
Documentation for date of: 02/21/25 Subjective Subjective Interval history: Patient evaluated Upon discharge patient CBC on Monday I will arrange outpatient ERCP Okay here already discharged Exam Vital Signs Temp Pulse Resp BP Pulse Ox O2 Del Method O2 Flow Rate 97.4 F 73 18 119/66 97 Room Air 6 02/21/25 16:00 02/21/25 16:00 02/21/25 16:00 02/21/25 16:00 02/21/25 16:00 02/21/25 08:00 02/20/25 12:25 FiO2 98 02/18/25 19:37 Objective Labs 02/21/25 05:08 02/21/25 05:08 Labs: Laboratory Results - last 24 hr 02/21/25 05:08 WBC 8.6 RBC 3.77 L Hgb 11.6 L Hct 34.3 L MCV 91 MCH 30.8 MCHC 33.8 RDW Std Deviation 44.9 Plt Count 184 Neut % (Auto) 86 H Lymph % (Auto) 9 L [place] % (Auto) 5 Eos % (Auto) 0 Baso % (Auto) 0 Neut # (Auto) 7.4 Lymph # (Auto) 0.7 L [place] # (Auto) 0.4 Eos # (Auto) 0.0 Baso # (Auto) 0.0 Immature Gran # (Auto) 0.04 H Absolute Nucleated RBC 0.00 Immature Gran % 1 H Nucleated RBC % 0 Sodium 140 Potassium 4.1 Chloride 104 Carbon Dioxide 25.3 Anion Gap 11 BUN 10 Creatinine 0.9 Estim Creat Clear Calc 107.9 eGFR > 60 BUN/Creatinine Ratio 11 L Glucose 119 H Calculated Osmolality 279 Calcium 9.3 Corrected Calcium 9.3 Total Bilirubin 0.6 AST 48 H ALT 44 Alkaline Phosphatase 72 D Total Protein 6.8 Albumin 4.0 D Globulin 2.8 Albumin/Globulin Ratio 1.4 Impressions Impression: # Choledocholithiasis Relatively normal LFTs Outpatient ERCP Assessment & Plan Time Spent With Patient Time: Total time spent is greater than 50% in coordination of care (as documented) at patient's floor/unit and/or counseling patient:
--- NOTE | 2025-02-21 20:25 | PC.NURSE ---
pt called to report that she spit out phlegm with blood and wanted to report that to the doctors. Dr. Mitchell was made aware. stated that he will come to assess pt in 30 min.
--- NOTE | 2025-02-21 20:29 | PC.NURSE ---
Dr. Sinclair was contacted to let him know that pt had some questions for him. Dr. Sinclair spoke to pt over the phone.
--- NOTE | 2025-02-21 20:36 | PC.NURSE ---
at bedside talking to pt.
[2025-02-22] VITALS: BP 141/86; PULSE 66; RESP 18; TEMP 36.1; O2SAT 98
[2025-02-22 04:00] VITALS: BP 116/72; PULSE 64; RESP 18; TEMP 36.3; O2SAT 99
[2025-02-22 07:40] VITALS: PULSE 61; RESP 18; RESP 98; O2SAT 98
[2025-02-22 08:00] VITALS: BP 121/70; PULSE 64; RESP 17; TEMP 36.3; O2SAT 97
[2025-02-22 08:42] VITALS: BP 121/70; PULSE 64
[2025-02-22] MEDS: LOSARTAN POTASSIUM 25 MG TABLET 50 MG PO (08:42)
[2025-02-22] MEDS: DOCUSATE SOD 100 MG CAPSULE PO (08:43)
--- NOTE | 2025-02-22 08:54 | ESDS_ITS ---
<Statement entered by Rickie Gooden MD - 02/23/25 12:43> I have discussed and was present for the essential components of the history, physical examination, diagnosis, and treatment plan with the resident. I agree with the patient's care as documented by the resident and amended herein by me. Rickie Gooden MD FACP. Planned Discharge Date 02/22/25 DS: Providers Provider Date of admission: 02/17/25 18:04 Primary care physician: Guru Allen MD Admitting Provider: Chico Garrett MD Attending Provider on Admission: Kirill Finley MD Consults: 02/18/25 10:32 Consult to General Surgery Routine Comment: recurrent gallstone pancreatitis Consulting Provider: Mamadou Hairston 02/19/25 13:23 Consult to Gastroenterology Routine Comment: Consulting Provider: Blossom Sinclair 02/20/25 14:48 Referral Physical Therapy Routine Comment: Physician Instructions: Attending Provider on DC: Genesis Goldberg MD Discharging Provider: Genesis Goldberg MD DS: Diagnosis Problem List Completed Was Problem List Reviewed/Reconciled?: Yes Hospital Course Hospital Course Hospital course: Patient: 59-year-old female History: Asthma, hypertension, diabetes (diet controlled), high cholesterol, and gallstones. Reason for Admission: Abdominal pain due to gallstone pancreatitis. Hospital Course The patient was admitted with severe abdominal pain and found to have pancreatitis caused by gallstones. She underwent a laparoscopic cholecystectomy with an intraoperative cholangiogram. The procedure showed normal bile ducts but four small stones remaining in the lower bile duct. After surgery, her liver tests were mostly normal except for a mildly elevated AST. She recovered well, is tolerating a soft diet, and her pain is controlled. Gastroenterology will follow up for possible removal of the remaining stones with an ERCP procedure. Discharge Medications * Continue all home medications as prescribed. * [place]: 1 tablet every 8 hours as needed for severe pain (do not exceed 3 tablets per day). * Zofran: As needed for nausea. * Losartan 50 mg daily and Hydrochlorothiazide 25 mg daily for blood pressure. Discharge Instructions * Eat a soft diet and advance as tolerated. * Continue gentle activity and physical therapy as instructed. * Use pain medicine only as needed; switch to [id number] pain relief as symptoms improve. * Follow-up Appointments: * Dr. Hairston (General Surgery): In 2 weeks. * Dr. Sinclair (Gastroenterology): On Monday for ERCP scheduling ? do not delay this appointment, as the procedure is very important. Patient care was discussed with attending physician Dr. Giacomo Goldberg MD PGY-3 I have carefully reviewed this document. Due to imperfections in the voice software, there could be grammatical errors including phonetic/typographic errors. This in no way compromises the medical care the patient is receiving Time Spent with Patient Time attestation: Total time spent providing and/or coordinating discharge services: Time spent: Greater than 30 minutes Exam Vital Signs Temp Pulse Resp BP Pulse Ox O2 Del Method O2 Flow Rate 97.3 F 64 18 121/70 99 Room Air 6 02/22/25 04:00 02/22/25 08:42 02/22/25 04:00 02/22/25 08:42 02/22/25 04:00 02/22/25 04:00 02/20/25 12:25 FiO2 98 02/18/25 19:37 Narrative Exam General: Patient alert, oriented, in no acute distress. HEENT: Normocephalic, atraumatic. PERRLA, EOMI, no scleral icterus or conjunctival injection. Neck: Supple, trachea midline, no thyromegaly or lymphadenopathy. Cardiac: Regular rate and rhythm, normal S1/S2, no murmurs, rubs, or gallops. Peripheral pulses 2+ and symmetric. No peripheral edema. Lungs: Normal effort, clear to auscultation bilaterally, no wheezes, rales, or rhonchi. Abdomen: Morbidly obese, soft, nondistended, with mild tenderness over epigastric area. No rebound or guarding noted. Normoactive bowel sounds present. No hepatosplenomegaly appreciated. Surgical incision clean, dry and intact, no erythema, drainage or swelling noted. Extremities: Warm, well-perfused, no clubbing, cyanosis, or edema. Full range of motion, no joint tenderness. Skin: Warm, dry, intact. No rashes, lesions, or ecchymoses. Neuro: Alert and oriented ?3. Speech fluent. Cranial nerves II?XII grossly intact. Motor 5/5 throughout, sensation intact Discharge Plan Plan Patient Disposition: HOME (Self Care) Care Plan Goals: * Medications: * Continue taking your home medications as prescribed. * For severe pain (7-10 on the pain scale), take [place] (1 tablet) every 8 hours as needed. * Important: Do not exceed the maximum daily dose of 3 tablets. * Follow-up Appointments: * General Surgery: You need to follow up with Dr. Hairston (likely for any post-operative care or further management). * Gastroenterology: A follow-up with Dr. Sinclair (home coordinator) is very important for Monday. Dr. Sinclair will be arranging an ERCP (Endoscopic Retrograde Cholangiopancreatography), which seems to be a crucial procedure in your case. It?s important not to delay the GI follow-up since the ERCP procedure will be arranged through that appointment. This is often done for issues related to the bile ducts, gallbladder, or pancreas, so it's a significant part of your treatment plan. Return to ED anytime symptoms worsen. Prescriptions/Referrals Prescriptions/Med Rec: New hydrocodone-acetaminophen 5-325 mg tablet 1 tab PO Q8H MDD 3 PRN (Reason: pain) Qty: 7 0RF Rx Instructions: take as needed foe sever pain (7-10). do not exceed daily max dose. sennosides [Senna Laxative] 8.6 mg tablet 8.6 mg PO QDAY Qty: 7 0RF Continued losartan 50 mg tablet 50 mg PO DAILY hydrochlorothiazide 25 mg tablet 25 mg PO DAILY Discontinued prednisone 50 mg tablet 50 mg PO QDAY Qty: 7 0RF Referrals: Guru Allen MD [Primary Care Provider, Family Practice] Mamadou Hairston MD [Physician, General Surgery] Blossom Sinclair MD [Physician, Gastroenterology] Patient/Caregiver Discharge Instructions Education Materials: Preventing Surgical Site Infections Print Language: Kazakh Activity Restrictions/Additional Instructions: May shower in 24 hours. Avoid lifting, straining, pulling or pushing for 4 weeks. May take over the counter laxatives if no bowel movement in 2 days. Follow up with Dr. Hairston in 2 weeks, call [phone] for an appointment. Continue low-fat diet for a week then advance diet as tolerated. Stand Alone Forms: Irene Award Info., Patient Portal Info Letter Discharge Order Discharge Orders: Discharge (Routine); Ordered 02/22/25 Ordered By: Genesis Goldberg Quality Discharge Quality Measures VTE prophylaxis
--- NOTE | 2025-02-22 10:29 | PC.NURSE ---
RN notified by lab that patient refused lab draw for second time this morning, made aware. No new orders.
[2025-02-22] MEDS: HYDROcodone/APAP 5/325 TABLET 1 TAB PO (11:08)
[2025-02-22 12:00] VITALS: BP 123/75; PULSE 64; RESP 18; TEMP 36.2; O2SAT 97
--- NOTE | 2025-02-22 20:31 | PD.IMPROG ---
Documentation for date of: 02/22/25 Subjective Subjective Interval history: Late entry for the note patient is pain-free LFTs remain normal Case discussed with the internal medicine team Discharge patient home to be followed by me as an outpatient on Monday or Monday and then schedule an outpatient ERCP Exam Vital Signs Temp Pulse Resp BP Pulse Ox O2 Del Method O2 Flow Rate 97.1 F 64 18 123/75 97 Room Air 6 02/22/25 12:00 02/22/25 12:00 02/22/25 12:00 02/22/25 12:00 02/22/25 12:00 02/22/25 12:00 02/20/25 12:25 FiO2 98 02/18/25 19:37 Objective Labs 02/21/25 05:08 02/21/25 05:08 Impressions Impression: Choledocholithiasis Okay to discharge to be followed by me either Monday or Monday in my office Assessment & Plan Time Spent With Patient Time: Total time spent is greater than 50% in coordination of care (as documented) at patient's floor/unit and/or counseling patient:
== END 2025-02-22 13:38 | disposition home or self-care (01) | DRG 417 ==
LOC: SERX 18:03 → SERHOLD 02-18 06:54 → S3SX 02-18 06:54
PROVIDERS: Nurse Practitioner Family; Student in an Organized Health Care Education/Training Program; Surgery; Admitting Provider Student in an Organized Health Care Education/Training Program; Emergency Provider Emergency Medicine; PCP Family Medicine; Visit Provider Student in an Organized Health Care Education/Training Program
PROC: 0FT44ZZ Resection of Gallbladder, Percutaneous Endoscopic Approach (ICD-10-PCS; CPT 47562; 2025-02-20 11:15)
DX: K80.64 Calculus of gallbladder and bile duct with chronic cholecystitis without obstruction (principal); K85.10 Biliary acute pancreatitis without necrosis or infection; Z68.43 Body mass index [BMI] 50.0-59.9, adult; E11.9 Type 2 diabetes mellitus without complications; I10 Essential (primary) hypertension; E78.5 Hyperlipidemia, unspecified; J45.909 Unspecified asthma, uncomplicated; E66.01 Morbid (severe) obesity due to excess calories; E78.00 Pure hypercholesterolemia, unspecified; Z79.899 Other long term (current) drug therapy; Z88.0 Allergy status to penicillin; Z88.6 Allergy status to analgesic agent
CPT/HCPCS: 36415; 74176; 74300; 76705; 80053; 80061; 81001; 83690; 83735; 84100; 84443; 85025; 85610; 85730; 86850; 86900; 86901; 87077; 87086; 87186; 94664; 96361; 96374; 96375; 96376; 97162; 99284; A4217; A4649; J0131; J0694; J1100; J1171; J1815; J2270; J2405; J2704; J2765; J3010; J3490; J7030; J7120; A9270

== ENCOUNTER → 2025-02-25 | Outpatient (CLI) | payer BC, SELFPAY ==
[2025-02-25 13:24] LABS: Collection Type, Urine Clean Catch
[2025-02-25 13:58] LABS: Basophils # (Auto) 0.1 Thou/mm3 (0.0-0.2); Basophils % (Auto) 1 % (0-2.5); Eosinophils # (Auto) 0.4 Thou/mm3 (0.0-0.5); Eosinophils % (Auto) 4 % (0-10); Hematocrit 42.0 % (36.0-46.0); Hemoglobin 13.5 g/dL (12.0-16.0); Immature Granulocytes Auto 0.03 Thou/mm3 (0.00-0.00); Lymphocytes # (Auto) 1.7 Thou/mm3 (1.0-4.8); Lymphocytes % (Auto) 19 % (10-50); Mean Corpuscular HGB Conc 32.1 g/dl (31.0-37.0); Mean Corpuscular Hemoglobin 29.7 pg (25.0-35.0); Mean Corpuscular Volume 92 fL (80-100); Monocytes # (Auto) 0.6 Thou/mm3 (0.0-0.8); Monocytes % (Auto) 6 % (0-12); Neutrophils # (Auto) 6.5 Thou/mm3 (1.8-7.7); Neutrophils % (Auto) 71 % (37-80); Nucleated Red Blood Cell # 0.00 Thou/mm3 (0.00-0.00); Nucleated Red Blood Cell % 0 /100 WBC (0); Platelet Count 304 Thou/mm3 (140-440); RDW Standard Deviation 46.9 fL (36.4-46.3); Red Blood Count 4.55 Miln/mm3 (4.00-5.20); White Blood Count 9.3 Thou/mm3 (3.6-11.0)
[2025-02-25 14:01] LABS: Bilirubin,Urine Negative (Negative); Blood,Urine Negative (Negative); Clarity,Urine Clear (Clear/Hazy); Color,Urine Lt-Yellow (Lt Yel-Yel); Glucose, Urine Negative (Negative); Ketones,Urine Negative (Negative); Leukocyte Esterase,Urine Negative (Negative); Nitrite,Urine Negative (Negative); PH,Urine 7.0 (5.0-7.0); Protein,Urine Negative (Neg - Trace); RBC,Urine 1 /hpf (0-3); Specific Gravity,Urine 1.015 (1.001-1.035); Squamous Epithelial Cell,Urine < 1 /hpf (0-5); Urobilinogen,Urine Negative mg/dL (0.0-1.0); WBC,Urine < 1 /hpf (0-5)
[2025-02-25 14:30] LABS: Alanine Aminotransferase 198 U/L (10-49); Albumin, Serum 4.5 gm/dL (3.5-5.0); Albumin/Globulin Ratio 1.6 (1.2-2.2); Alkaline Phosphatase 207 U/L (46-116); Amylase 67 U/L (30-118); Anion Gap 13 (7-16); Aspartate Amino Transferase 55 U/L (0-34); BUN/Creatinine Ratio 14 Ratio (12-20); Bilirubin,Total 0.7 mg/dL (0.3-1.2); Blood Urea Nitrogen 14 mg/dL (9-23); Calcium 9.7 mg/dL (8.3-10.6); Calcium (Corrected) 9.7 mg/dL (8.5-10.1); Carbon Dioxide 24.2 mMol/L (20.0-31.0); Chloride 102 mMol/L (98-107); Creatinine (Component) 1.0 mg/dL (0.6-1.3); Globulin 2.9 gm/dL (2.3-3.5); Glucose 100 mg/dL (74-106); Lipase 69 U/L (12-53); Osmolality,Calculated 278 (275-295); Potassium 4.1 mMol/L (3.4-5.1); Sodium 139 mMol/L (136-145); Total Protein 7.4 gm/dL (5.7-8.2); eGFR > 60 See Note
== END | disposition home or self-care (01) ==
LOC: COPL 12:12
PROVIDERS: PCP Family Medicine; Referring Provider Specialist; Visit Provider Specialist
DX: R14.0 Abdominal distension (gaseous) (principal); R10.13 Epigastric pain
CPT/HCPCS: 36415; 80053; 81001; 82150; 83690; 85025

== ENCOUNTER → 2025-02-28 | Outpatient (CLI) | payer BC, SELFPAY | END | disposition home or self-care (01) | LOC: SLDO 14:36 | PROVIDERS: PCP Physician Assistant; Referring Provider Physician Assistant; Visit Provider Physician Assistant | DX: N39.0 Urinary tract infection, site not specified (principal) | CPT/HCPCS: 87077; 87086; 87186 ==

== ENCOUNTER 2025-03-10 18:05 | Emergency (ER) | payer BC, SELFPAY ==
[2025-03-10 18:05] VITALS: BMI 54.8
[2025-03-10 19:35] VITALS: BP 160/85; PULSE 90; RESP 18; TEMP 36.6; O2SAT 95
--- NOTE | 2025-03-10 19:40 | PD.EDRME ---
Rapid Medical Screening Exam RME Arrival date/time: 03/10/25 18:05 59-year-old female who is s/p laparoscopic cholecystectomy with intraoperative cholangiogram reports with complaint of epigastric abdominal pain and nausea x 1 day Chief Complaint: Abdominal Pain Time Seen by Provider: 03/10/25 18:22 Vital signs: Vital Signs Temperature 97.8 F 03/10/25 19:35 Pulse Rate 90 03/10/25 19:35 Respiratory Rate 18 03/10/25 19:35 Blood Pressure 160/85 H 03/10/25 19:35 Pulse Oximetry (%) 95 03/10/25 19:35 Oxygen Delivery Method Room Air 03/10/25 19:35 Exam: ? Clinical Impression: ?
--- NOTE | 2025-03-10 19:44 | XR_ITS ---
Examination: CT abdomen with intravenous contrast CT pelvis with intravenous contrast 2-D coronal reconstructions 2-D sagittal reconstructions Date and time of exam: March 11, 2025, 0013 hours, comparison February 17, 2025 INDICATIONS: Abdominal pain today, status post cholecystectomy February 20, 2025. CTDI: vol (mGy) 27.5 DLP: (mGycm) 1618 Technique: Multiple axial sections of the abdomen and pelvis have been obtained. 64 slice high-resolution scanner used. 3 mm axial sections have been obtained, post intravenous injection 60 cc Isovue 370 2-D sagittal, coronal reconstructions obtained. Low dose protocols were performed. One or more of the following dose reduction techniques were used; automated exposure control, adjustment of the mA and/or KV according to patient size, use of iterative reconstruction technique. Findings: No focal liver or splenic lesions Minimal fluid in the gallbladder fossa No common bile duct stones Minimal peripancreatic edema, no pseudocyst No hydronephrosis Aorta normal size 36 mm fat-containing umbilical hernia No bowel obstruction Small bilateral ovarian cysts, the largest on the left side 25 mm Bladder intact IMPRESSION: Minimal postop fluid in the gallbladder fossa Minimal pancreatitis
[2025-03-10 20:01] LABS: Basophils # (Auto) 0.1 Thou/mm3 (0.0-0.2); Basophils % (Auto) 1 % (0-2.5); Eosinophils # (Auto) 0.4 Thou/mm3 (0.0-0.5); Eosinophils % (Auto) 4 % (0-10); Hematocrit 43.4 % (36.0-46.0); Hemoglobin 14.1 g/dL (12.0-16.0); Immature Granulocytes Auto 0.03 Thou/mm3 (0.00-0.00); Lymphocytes # (Auto) 2.1 Thou/mm3 (1.0-4.8); Lymphocytes % (Auto) 24 % (10-50); Mean Corpuscular HGB Conc 32.5 g/dl (31.0-37.0); Mean Corpuscular Hemoglobin 30.1 pg (25.0-35.0); Mean Corpuscular Volume 93 fL (80-100); Monocytes # (Auto) 0.5 Thou/mm3 (0.0-0.8); Monocytes % (Auto) 6 % (0-12); Neutrophils # (Auto) 5.7 Thou/mm3 (1.8-7.7); Neutrophils % (Auto) 65 % (37-80); Nucleated Red Blood Cell # 0.00 Thou/mm3 (0.00-0.00); Nucleated Red Blood Cell % 0 /100 WBC (0); Platelet Count 313 Thou/mm3 (140-440); RDW Standard Deviation 46.5 fL (36.4-46.3); Red Blood Count 4.69 Miln/mm3 (4.00-5.20); White Blood Count 8.7 Thou/mm3 (3.6-11.0)
[2025-03-10 20:25] LABS: Alanine Aminotransferase 15 U/L (10-49); Albumin, Serum 4.6 gm/dL (3.5-5.0); Albumin/Globulin Ratio 1.7 (1.2-2.2); Alkaline Phosphatase 113 U/L (46-116); Anion Gap 8 (7-16); Aspartate Amino Transferase 19 U/L (0-34); BUN/Creatinine Ratio 17 Ratio (12-20); Bilirubin,Total 0.4 mg/dL (0.3-1.2); Blood Urea Nitrogen 19 mg/dL (9-23); Calcium 9.7 mg/dL (8.3-10.6); Calcium (Corrected) 9.7 mg/dL (8.5-10.1); Carbon Dioxide 28.0 mMol/L (20.0-31.0); Chloride 106 mMol/L (98-107); Creatinine (Component) 1.1 mg/dL (0.6-1.3); Estimated Creatinine Clearance 86.6 mL/min (>60); Globulin 2.7 gm/dL (2.3-3.5); Glucose 95 mg/dL (74-106); Osmolality,Calculated 285 (275-295); Potassium 4.3 mMol/L (3.4-5.1); Sodium 142 mMol/L (136-145); Total Protein 7.3 gm/dL (5.7-8.2); eGFR 59 See Note
[2025-03-10 22:39] VITALS: BP 158/119; PULSE 77; RESP 19; TEMP 37.2; O2SAT 97
[2025-03-10 22:52] LABS: Collection Type, Urine Clean Catch
[2025-03-10 23:02] LABS: Bacteria,Urine 2+; Bilirubin,Urine Negative (Negative); Blood,Urine Negative (Negative); Clarity,Urine Clear (Clear/Hazy); Color,Urine Lt-Yellow (Lt Yel-Yel); Glucose, Urine Negative (Negative); Hyaline Casts,Urine < 1 /hpf (0-1); Ketones,Urine Negative (Negative); Leukocyte Esterase,Urine Negative (Negative); Nitrite,Urine Negative (Negative); PH,Urine 6.0 (5.0-7.0); Protein,Urine Negative (Neg - Trace); RBC,Urine 5 /hpf (0-3); Specific Gravity,Urine 1.024 (1.001-1.035); Squamous Epithelial Cell,Urine 6 /hpf (0-5); Urobilinogen,Urine Negative mg/dL (0.0-1.0); WBC,Urine 1 /hpf (0-5)
[2025-03-10 23:24] LABS: HCG Qualitative,Urine Negative
[2025-03-10] MEDS: MORPHINE SULF INJ 4 MG/ML VIAL IVP (23:43)
[2025-03-10] MEDS: SODIUM CHLORIDE 0.9% 1000 ML 1,000 ML 999 ML IV (23:43)
[2025-03-10] MEDS: PROCHLORPERAZINE INJ 5 MG/ML VIAL 2 ML IV (23:44)
--- NOTE | 2025-03-10 23:58 | PD.EDABDPN ---
ED Abdominal Pain RME/HPI General Chief Complaint: Abdominal Pain Stated complaint: ABD PAIN FOR 3 HOURS, RECENT ABD SURGERY Time seen by provider: 03/10/25 18:22 Arrival date/time: 03/10/25 18:05 RME / HPI RME / HPI narrative: 03/10/25 18:05 59-year-old female who is s/p laparoscopic cholecystectomy with intraoperative cholangiogram reports with complaint of epigastric abdominal pain and nausea x [address] GRAVES MAIN ED EVALUATION: Patient s/p cholecystectomy on 02/20/2025 with known choledocolithiasis with recurrent diffuse upper abdominal pain occasional radiation to the right flank, nausea without emesis, and 1 bout of diarrhea today. No fever or chills. PMH: Asthma, HLD, HTN, Type II DM PSH: , Cholecystectomy Allergies: ASA, Penicillin Social: Non-smoker, No-drinker, No illicit drug abuse Exam: ? Impression: ? Related Data Home Medications ?Medication ?Instructions ?Recorded ?Confirmed hydrochlorothiazide 25 mg tablet 25 mg PO DAILY Hypertension 02/17/25 02/17/25 losartan 50 mg tablet 50 mg PO DAILY Hypertension 02/17/25 02/17/25 Previous Rx's ?Medication ?Instructions ?Recorded hydrocodone 5 mg-acetaminophen 325 1 tab PO Q8H PRN pain #7 tabs 02/22/25 mg tablet sennosides 8.6 mg tablet (Senna 8.6 mg PO QDAY #7 tabs 02/22/25 Laxative) hydrocodone 5 mg-acetaminophen 325 1 tab PO Q12H PRN pain #14 tabs 03/11/25 mg tablet pantoprazole 20 mg tablet,delayed 20 mg PO QDAY #30 tabs 03/11/25 release (Protonix) promethazine 12.5 mg tablet 12.5 mg PO TID PRN nausea and 03/11/25 vomiting #14 tabs Allergies Allergy/AdvReac Type Severity Reaction Status Date / Time aspirin Allergy Severe Hives Verified 03/10/25 18:07 Penicillins Allergy Severe Hives Verified 03/10/25 18:07 Review of Systems Review of Systems Systems Reviewed: All systems reviewed, normal except as documented Past Medical History Past Medical History CARDIAC: Positive Cardiac Disorders, Hypercholesterolemia and Hypertension RESPIRATORY: Positive Asthma GASTROINTESTINAL: Positive Gastrointestinal Disorders, Pancreatitis and Gall Bladder Disease GENITOURINARY: Positive Inguinal Hernia REPRODUCTIVE: Positive Previous Pregnancies MUSCULOSKELETAL: Positive Arthritis ENDOCRINE: Positive Diabetes Mellitus Type 2 PSYCHO/SOCIAL: Positive Anxiety OTHER HISTORY: Positive Hospitalization Surgical History SURGICAL: Positive Abdominal Surgery and Section ED Exam Narrative Physical exam: GEN. APPEARANCE: The patient is alert awake oriented X-3 under no distress, lying down comfortably, does not look ill/toxic, orbidly obese c/o upper abdominal pain. Patient has good eye contact. Patient is cooperative. VITALS: All vitals were reviewed and the pulse ox is 99%, which is normal according to my interpretation HEENT: Normocephalic, atraumatic and nontender. Pupils are equal and reactive. Oral mucosa is moist. NECK: Supple, nontender, no meningismus, no JVD. There is no thyromegaly and no lymphadenopathy. CHEST: Nontender on palpation no deformity and no crepitus. CARDIOVASCULAR: Heart regular rhythm, no murmur or gallop rub or extra beats. LUNGS: Clear to auscultation bilaterally with symmetrical chest rise. No laboring tachypnea or wheezing. No intercostal subcostal retraction. No rales and no rhonchi. ABDOMEN: Soft, obese, mild tenderness to mid-epigastric/RUQ, no gurading or peritoneal findings. There are no abnormal masses palpated. No pulsatile masses or bruits. Active and normal bowel sounds. EXTREMITIES: Normal inspection and palpation. No edema. No cyanosis. Patient is able to move all 4 extremities well SKIN: Warm and dry, no rashes noted. MUSCULOSKELETAL: No lumbar or midline bony tenderness. There is no CVA tenderness. No paraspinal muscle spasm or tenderness. NEURO: Cranial nerves II through XII grossly intact. There are no focal neurologic deficits noted. GCS is 15 PSYCHIATRIC: Patient is in normal mood and affect, cooperative. LYMPHATICS: No major lymphadenopathy noted. Course Quality Measures none Orders Category Date Time Status CT Screening NOW Care 03/10/25 19:45 Completed Insert IV NOW Care 03/10/25 22:[address] abdomen pelvis w con Stat Exams 03/10/25 19:44 Taken CBC Stat Lab 03/10/25 19:51 Completed CMP [Comprehensive Metabolic Panel] Stat Lab 03/10/25 19:51 Completed HCG Qualitative,Urine Stat Lab 03/10/25 22:48 Completed Lipase Stat Lab 03/11/25 01:19 Completed UA [Urinalysis] Stat Lab 03/10/25 22:48 Completed Morphine* Inj Med 03/10/25 23:30 Discontinued 4 mg IVP X1 ONE Prochlorperazine Inj [Compazine Inj] Med 03/10/25 23:29 Discontinued 5 mg IV X1 ONE Sodium Chloride 0.9% 1000 ml [Ns] 1,000 ml Med 03/10/25 23:30 Discontinued IV 999 mls/hr Vital Signs Vital signs: Vital Signs Temperature 97.8 F 03/10/25 19:35 Pulse Rate 90 03/10/25 19:35 Respiratory Rate 18 03/10/25 19:35 Blood Pressure 160/85 H 03/10/25 19:35 Pulse Oximetry (%) 95 03/10/25 19:35 Oxygen Delivery Method Room Air 03/10/25 19:35 Abdominal Pain MDM MDM Narrative MDM Narrative:: Scribe Attestation: ICandelaria, am scribing for and in the presence of Dr. Graves. Provider Notation: Although this document has been carefully reviewed, there may still be some phonetic and other typographical errors. These errors are purely grammatical due to imperfections in the software program and should not be construed in any way to compromise the substance of the patient's medical care during this visit. Patient s/p cholecystectomy on 02/20/2025 with known choledocolithiasis with recurrent diffuse upper abdominal pain occasional radiation to the right flank, nausea without emesis, and 1 bout of diarrhea today. No fever or chills. Please see PE findings. Laboratory markers, including CBC and serum chermistries, demonstrate Patient s/p cholecystectomy on 02/20/2025 with known choledocolithiasis with recurrent diffuse upper abdominal pain occasional radiation to the right flank, nausea without emesis, and 1 bout of diarrhea today. No fever or chills. Please see PE findings. Laboratory markers, including CBC and serum chemistries, demonstrated normal WBC, no anemia or thrombocytopenia. Serum chemistries were unremarkable, including LFT's and Lipase. UA with equivocal evidence of infection. test negative. Imaging studies including a CT scan demonstrated post-surgical changes from recent cholecystectomy, mild residual pancreatitis without evidence of abscess or phlegma, no ascites evident. Incidentally, BL ovarian cysts are present. Patient treated with IV fluids, low-dose narcotic analgesics/anti-emetics. On serial evaluation, patient is resting comfortably, hemodynamically stable, with mild residual abdominal tenderness. Patient will be discharged on PPI, low-dose narcotic analgesics, anti-emetics, and patient will require an ERCP, as pending with Hx of choledocolithiasis. Patient data External records reviewed:: [facility] previous records (Reviewed prior ED records from 02/17/25. Patient was seen for Acute pancreatitis.) Clinical information provided by:: patient Social determinants that could affect healthcare access:: none Patient has the following chronic illnesses:: Hypercholesterolemia, Hypertension, Asthma, Pancreatitis, Gall Bladder Disease, Inguinal Hernia, Arthritis, Diabetes Mellitus Type 2, Anxiety How is presenting disease/condition affected by chronic disease/condition?: exacerbated by Evaluation data The following diagnostics were reviewed and interpreted by me:: lab results and radiology exam(s) Lab and/or radiology exams considered but not ordered:: None Interpretation Summary: RADIOLOGY Abdomen/Pelvis CT: Findings: The lung bases are clear. There is a recent cholecystectomy. Minimal fluid densities with fat stranding are seen in the gallbladder fossa. There is no ascites. There is minimal peripancreatic fat stranding (predominantly around the head, uncinate process, and adjacent body of the pancreas). No obvious peripancreatic collection or ductal dilatation is seen. The liver, spleen, adrenals and kidneys are unremarkable. There is no bowel obstruction. The appendix is within normal limits. There are occasional colonic diverticula without evidence of diverticulitis. The urinary bladder is contracted. There are bilateral ovarian cysts, the largest measuring 2.5 cm in the left ovary. The uterus is unremarkable. There is no ascites. There is a fat-containing small umbilical hernia. Postoperative changes are seen in the epigastric region. Degenerative changes are seen in the spine. Impression: 1. Recent cholecystectomy with a trace of free fluid in the gallbladder fossa. 2. No bowel obstruction or ascites. 3. Minimal peripancreatic fat stranding without obvious peripancreatic collection. Recommend clinical and laboratory correlation for bilateral ovarian cysts as described. Recommend clinical correlation and further evaluation with ultrasound as indicated. 4. Other findings are as described above. Medications / Prescriptions Medications or Prescriptions considered but not ordered:: None Medication administrations:: Medication Administration History Discontinued Medications Sodium Chloride (Ns) 1,000 mls @ 999 mls/hr IV .Q1H1M ONE Stop: 03/11/25 00:30 Last Infusion: 03/11/25 00:53 Dose: Infused Documented By: Admin: 03/10/25 23:43 Dose: 999 mls/hr Documented By: WALTER Morphine Sulfate (Morphine Sulf Inj 4 Mg/Ml Vial) 4 mg IVP X1 ONE Stop: 03/10/25 23:31 Last Admin: 03/10/25 23:43 Dose: 4 mg Documented By: WALTER Prochlorperazine Edisylate (Prochlorperazine Inj 5 Mg/Ml Vial 2 Ml) 5 mg IV X1 ONE; Protocol Stop: 03/10/25 23:30 Last Admin: 03/10/25 23:44 Dose: 5 mg Documented By: WALTER See above if any Consultations Consultation(s) initiated? (list below): No Diagnosis Differential diagnosis abdominal pain: abdominal pain, calculus of kidney, gastroenteritis, pancreatitis and other (Gastritis, GERD, Peptic Ulcer) Most likely diagnosis given after review of the tests above:: Pancreatitis Admission Indicated Admission indicated?: not indicated Explain why admission is indicated or not indicated:: Pancreatitis Admission Request Was there a request for admission?: No Disposition Plan Disposition Plan: Discharge Discharge Attestation Discharge Attestation: The patient and all family members were given an opportunity to ask questions and understood the discharge instructions. Discharge instructions specifically effects, indications for sooner follow up or return to the emergency department, and the expected course of current diagnosis. Patient condition: Stable Discharge Plan Plan Patient Disposition: HOME (Self Care) Discharge Disposition comment: stable Prescriptions/Referrals Prescriptions/Med Rec: New pantoprazole [Protonix] 20 mg tablet,delayed release (DR/EC) 20 mg PO QDAY Qty: 30 0RF promethazine 12.5 mg tablet 12.5 mg PO TID PRN (Reason: nausea and vomiting) Qty: 14 0RF hydrocodone-acetaminophen 5-325 mg tablet 1 tab PO Q12H MDD 2 tab PRN (Reason: pain) Qty: 14 0RF No Action losartan 50 mg tablet 50 mg PO DAILY hydrochlorothiazide 25 mg tablet 25 mg PO DAILY hydrocodone-acetaminophen 5-325 mg tablet 1 tab PO Q8H MDD 3 PRN (Reason: pain) Qty: 7 0RF Rx Instructions: take as needed foe sever pain (7-10). do not exceed daily max dose. sennosides [Senna Laxative] 8.6 mg tablet 8.6 mg PO QDAY Qty: 7 0RF Referrals: No Primary/Family,Physician [Primary Care Provider] - In 1 week Problem List Clinical Impression: Pancreatitis Patient/Caregiver Discharge Instructions Discharge Activity: activity as tolerated Diet Instructions: Clear liquid diet x 24 to 48 hours and advance as tolerated. Education Materials: ED Pancreatitis Additional Instructions: Clear liquid diet x 24 hours and advance as tolerated. Medications as directed. Follow-up with your GI specialist for anticipated ERCP. Return for fevers escalating abdominal pain vomiting or worsening illness. Print Language: Venezuelan Stand Alone Forms: Irene Award Info., Patient Portal Info Letter
[2025-03-11 00:01] VITALS: BP 137/82; PULSE 67; RESP 17; TEMP 36.8; O2SAT 99
--- NOTE | 2025-03-11 00:55 | PRELIM_ITS ---
CT scan of the abdomen and pelvis with intravenous contrast (axial sections with sagittal and coronal reformats); March 11, 2025 at 0010 hours Clinical History: S/p cholecystectomy now abdominal pain. Comparison: No prior study available for comparison at the time of interpretation. Findings: The lung bases are clear. There is a recent cholecystectomy. Minimal fluid densities with fat stranding are seen in the gallbladder fossa. There is no ascites. There is minimal peripancreatic fat stranding (predominantly around the head, uncinate process, and adjacent body of the pancreas). No obvious peripancreatic collection or ductal dilatation is seen. The liver, spleen, adrenals and kidneys are unremarkable. There is no bowel obstruction. The appendix is within normal limits. There are occasional colonic diverticula without evidence of diverticulitis. The urinary bladder is contracted. There are bilateral ovarian cysts, the largest measuring 2.5 cm in the left ovary. The uterus is unremarkable. There is no ascites. There is a fat-containing small umbilical hernia. Postoperative changes are seen in the epigastric region. Degenerative changes are seen in the spine. Impression: 1. Recent cholecystectomy with a trace of free fluid in the gallbladder fossa. 2. No bowel obstruction or ascites. 3. Minimal peripancreatic fat stranding without obvious peripancreatic collection. Recommend clinical and laboratory correlation for bilateral ovarian cysts as described. Recommend clinical correlation and further evaluation with ultrasound as indicated. 4. Other findings are as described above. Report Electronically Signed By: Justin Gauthier 03/11/2025 12:54:40 AM [EST]
[2025-03-11 01:35] LABS: Lipase 45 U/L (12-53)
== END 2025-03-11 02:19 | disposition home or self-care (01) ==
PROVIDERS: Physician Assistant; Emergency Provider Emergency Medicine
DX: K85.90 Acute pancreatitis without necrosis or infection, unspecified (principal); E11.9 Type 2 diabetes mellitus without complications; E78.5 Hyperlipidemia, unspecified; I10 Essential (primary) hypertension; J45.909 Unspecified asthma, uncomplicated
CPT/HCPCS: 36415; 74177; 80053; 81001; 81025; 83690; 85025; 96361; 96374; 99284; A4649; J0780; J2270; J7030; Q9967

== ENCOUNTER 2025-03-11 11:35 | Observation (INO) | payer BC, SELFPAY ==
--- NOTE | 2025-03-11 | XR_ITS ---
MRI abdomen, without contrast. MRCP Date and time of exam: March 03, 2025, 1421 hours INDICATIONS: Elevated lipase, clinical diagnosis: No cholelithiasis, nausea abdominal pain getting worse this week Technique: Multiple axial and coronal images of the abdomen have been obtained with the Siemens 1.5T MRI scanner. Images obtained included T1 weighted transverse images, T2-weighted transverse images, T2-weighted transverse images fat-suppressed, T2 weighted haste fat suppressed transverse images, T1 weighted images, in and out of phase images, T2-weighted coronal images, breath hold, T2 weighted haze coronal images as well as T2 weighted coronal thick slab images, MRCP. Findings: Liver nodular in contour no focal liver lesions Gallbladder not visualized Common hepatic duct 5 mm Common bile duct 3 mm no, Common bile duct stones No pancreatic edema or pancreatic mass Moderate renal scar formation No ascites Aorta normal size IMPRESSION: No common bile duct or common hepatic duct stones
[2025-03-11 11:54] VITALS: BP 136/84; PULSE 80; RESP 18; TEMP 36.8; O2SAT 95; BMI 53.8
--- NOTE | 2025-03-11 12:10 | PD.EDADULT ---
ED General RME/HPI General Chief complaint: Abdominal Pain Stated complaint: ABD PAIN 02/21 Time Seen by Provider: 03/11/25 11:43 Arrival date/time: 03/11/25 11:35 CC: Abdominal pain HPI patient was seen last night and discharged with abdominal pain the patient has a known choledocholithiasis and a slowly rising lipase. The patient denies any nausea vomiting but the pain has become progressively worse. Currently its a 6 to an 8 on a [address] Juan was contacted by Dr. Woodruff regarding this patient as the patient needs an ERCP and he had sent her over from his office for admission and ERCP the following day. Related Data Home Medications ?Medication ?Instructions ?Recorded ?Confirmed hydrochlorothiazide 25 mg tablet 25 mg PO DAILY Hypertension 02/17/25 02/17/25 losartan 50 mg tablet 50 mg PO DAILY Hypertension 02/17/25 02/17/25 Previous Rx's ?Medication ?Instructions ?Recorded hydrocodone 5 mg-acetaminophen 325 1 tab PO Q8H PRN pain #7 tabs 02/22/25 mg tablet sennosides 8.6 mg tablet (Senna 8.6 mg PO QDAY #7 tabs 02/22/25 Laxative) hydrocodone 5 mg-acetaminophen 325 1 tab PO Q12H PRN pain #14 tabs 03/11/25 mg tablet pantoprazole 20 mg tablet,delayed 20 mg PO QDAY #30 tabs 03/11/25 release (Protonix) promethazine 12.5 mg tablet 12.5 mg PO TID PRN nausea and 03/11/25 vomiting #14 tabs Allergies Allergy/AdvReac Type Severity Reaction Status Date / Time aspirin Allergy Severe Hives Verified 03/11/25 11:38 Penicillins Allergy Severe Hives Verified 03/11/25 11:38 Review of Systems Review of Systems Narrative Review of Systems: GEN: No fever, no chills, no weight loss EYES: No discharge, no visual changes, no pain HEENT: No ear pain, no congestion, no sore throat PULM: No shortness of breath, no cough, no congestion CV: No chest pain, no dyspnea on exertion, no palpitations GI: No nausea, no vomiting, no diarrhea, + pain, no constipation : No frequency, no urgency, no dysuria MUSC/SKEL: No joint pain, no back pain SKIN: No rash PSYCH: No hallucinations, no depression HEME/LYMPH: No easy bleeding or bruising tendencies NEURO: No weakness, no headache Past Medical History Past Medical History NEUROLOGIC: Negative Seizures CARDIAC: Positive Cardiac Disorders, Hypercholesterolemia and Hypertension; Negative Congestive Heart Failure RESPIRATORY: Positive Asthma; Negative Chronic Obstructive Pulmonary Disease (COPD) GASTROINTESTINAL: Positive Gastrointestinal Disorders, Pancreatitis and Gall Bladder Disease GENITOURINARY: Positive Inguinal Hernia; Negative Genitourinary Disorders or Renal Disease REPRODUCTIVE: Positive Previous Pregnancies MUSCULOSKELETAL: Positive Arthritis ENDOCRINE: Positive Diabetes Mellitus Type 2; Negative Diabetes Mellitus Type 1 HEMATOLOGIC: Negative Sickle Cell Disease PSYCHO/SOCIAL: Positive Anxiety OTHER HISTORY: Positive Hospitalization; Negative Blood Transfusions or Anesthesia Reactions Surgical History SURGICAL: Positive Abdominal Surgery and Section Social History SMOKING STATUS: Never smoker SUBSTANCE USE: does not use ED Exam Narrative Physical exam: [General: Morbidly obese in moderate discomfort but not in any acute distress Head normocephalic HEENT: Within acceptable limits Neck is supple nontender Chest equal chest rise nontender to palpation Respiratory: Clear to auscultation no wheezes crackles or rubs CV: Rate rhythm is regular no murmurs rubs or clicks Abdomen is grossly distended secondary to body habitus, large pannus, tenderness in the epigastrium left upper and mildly right upper quadrant. Positive bowel sounds all 4 quadrants Back: No CVA tenderness no spinous process tenderness from cervical spine thoracic and lumbar spine Skin: Intact no petechiae rash induration ulceration or crepitus Extremities: Moving all extremity against resistance cap refill less than 2 seconds neurosensory intact Neuro: Awake alert oriented x3 Glascow coma 15 no focal deficits] Course Course Course Narrative: Patient's case discussed with resident for Dr. Garrett who agrees to accept the patient for admission. Patient is in agreement with this plan. Quality Measures none Orders Category Date Time Status Insert IV STAT Care 03/11/25 11:54 Active MRI Screening NOW Care 03/11/25 11:55 Active Consult to Gastroenterology Stat Cons 03/11/25 13:25 Ordered MR MRCP Stat Exams 03/11/25 Ordered CBC Stat Lab 03/11/25 12:19 Completed CMP [Comprehensive Metabolic Panel] Stat Lab 03/11/25 12:19 Completed Lipase Stat Lab 03/11/25 12:19 Completed UA [Urinalysis] Stat Lab 03/11/25 13:16 Received Urine Culture Stat Lab 03/11/25 13:16 Received Morphine* Inj Med 03/11/25 12:08 Active 4 mg IVP Q1H PRN Morphine* Inj Med 03/11/25 11:54 Discontinued 4 mg IVP X1 ONE Ondansetron Inj [Zofran Inj] Med 03/11/25 11:54 Discontinued 4 mg IVP X1 ONE Ondansetron Inj [Zofran Inj] Med 03/11/25 12:08 Discontinued 4 mg IVP X1 ONE Ringers Lactated 1000 ml [Lactated Ringers] 500 ml Med 03/11/25 13:00 Active IV 250 mls/hr Ringers Lactated 500 ml [Lactated Ringers] 500 ml Med 03/11/25 12:08 Discontinued IV 250 mls/hr Vital Signs Vital signs: Vital Signs Temperature 98.2 F 03/11/25 11:54 Pulse Rate 80 03/11/25 11:54 Respiratory Rate 18 03/11/25 11:54 Blood Pressure 136/84 H 03/11/25 11:54 Pulse Oximetry (%) 95 03/11/25 11:54 Oxygen Delivery Method Room Air 03/11/25 11:54 Discharge Plan Plan Patient Disposition: Other Care w/in Hosp ([facility]) Patient condition on transfer: Stable Prescriptions/Referrals Prescriptions/Med Rec: No Action pantoprazole [Protonix] 20 mg tablet,delayed release (DR/EC) 20 mg PO QDAY Qty: 30 0RF promethazine 12.5 mg tablet 12.5 mg PO TID PRN (Reason: nausea and vomiting) Qty: 14 0RF hydrocodone-acetaminophen 5-325 mg tablet 1 tab PO Q12H MDD 2 tab PRN (Reason: pain) Qty: 14 0RF losartan 50 mg tablet 50 mg PO DAILY hydrochlorothiazide 25 mg tablet 25 mg PO DAILY hydrocodone-acetaminophen 5-325 mg tablet 1 tab PO Q8H MDD 3 PRN (Reason: pain) Qty: 7 0RF Rx Instructions: take as needed foe sever pain (7-10). do not exceed daily max dose. sennosides [Senna Laxative] 8.6 mg tablet 8.6 mg PO QDAY Qty: 7 0RF Problem List Clinical Impression: Choledocholithiasis, Abdominal pain Patient/Caregiver Discharge Instructions Print Language: Omani Stand Alone Forms: Irene Award Info., Patient Portal Info Letter ABRAM/NKECHI Supervising Physician ABRAM/NKECHI Supervising Physician: José Flores ENP [facility] Clinical Information Provided by: patient Medical Records reviewed [facility] Meds/Rx considered, not ordered None Labs/Rad/Tests considered, not ordered None Chronic Illness/Social Conditions which may negatively complicate care or outcome(s)-explain: None or not applicable EKG EKG not done Labs Labs: interpreted by il Medication Administration(s) Medication Administration History Lactated Ringer's (Lactated Ringers) 500 mls @ 250 mls/hr IV .Q2H ONE Stop: 03/11/25 14:59 Last Admin: 03/11/25 13:02 Dose: 250 mls/hr Documented By: GM Morphine Sulfate (Morphine Sulf Inj 4 Mg/Ml Vial) 4 mg IVP Q1H PRN PRN Reason: PAIN SCALE 4-10(Mod-Sev Stop: 03/15/25 12:07 Last Admin: 03/11/25 12:56 Dose: 4 mg Documented By: GM Discontinued Medications Lactated Ringer's (Lactated Ringers) 500 mls @ 250 mls/hr IV .Q2H MARLENI Stop: 04/10/25 12:07 Last Admin: 03/11/25 13:37 Dose: Not Given Documented By: GM Non-Admin Reason: Discontinued Morphine Sulfate (Morphine Sulf Inj 4 Mg/Ml Vial) 4 mg IVP X1 ONE Stop: 03/11/25 11:55 Last Admin: 03/11/25 12:58 Dose: Not Given Documented By: GM Non-Admin Reason: Discontinued Ondansetron HCl (Ondansetron Inj 2 Mg/Ml Inj 2 Ml) 4 mg IVP X1 ONE; Protocol Stop: 03/11/25 11:55 Last Admin: 03/11/25 12:55 Dose: 4 mg Documented By: GM Ondansetron HCl (Ondansetron Inj 2 Mg/Ml Inj 2 Ml) 4 mg IVP X1 ONE; Protocol Stop: 03/11/25 12:09 Last Admin: 03/11/25 12:58 Dose: Not Given Documented By: GM Non-Admin Reason: Discontinued
[2025-03-11 12:36] LABS: Basophils # (Auto) 0.1 Thou/mm3 (0.0-0.2); Basophils % (Auto) 1 % (0-2.5); Eosinophils # (Auto) 0.3 Thou/mm3 (0.0-0.5); Eosinophils % (Auto) 5 % (0-10); Hematocrit 42.8 % (36.0-46.0); Hemoglobin 13.9 g/dL (12.0-16.0); Immature Granulocytes Auto 0.02 Thou/mm3 (0.00-0.00); Lymphocytes # (Auto) 2.0 Thou/mm3 (1.0-4.8); Lymphocytes % (Auto) 30 % (10-50); Mean Corpuscular HGB Conc 32.5 g/dl (31.0-37.0); Mean Corpuscular Hemoglobin 30.3 pg (25.0-35.0); Mean Corpuscular Volume 93 fL (80-100); Monocytes # (Auto) 0.4 Thou/mm3 (0.0-0.8); Monocytes % (Auto) 5 % (0-12); Neutrophils # (Auto) 3.9 Thou/mm3 (1.8-7.7); Neutrophils % (Auto) 59 % (37-80); Nucleated Red Blood Cell # 0.00 Thou/mm3 (0.00-0.00); Nucleated Red Blood Cell % 0 /100 WBC (0); Platelet Count 280 Thou/mm3 (140-440); RDW Standard Deviation 46.7 fL (36.4-46.3); Red Blood Count 4.59 Miln/mm3 (4.00-5.20); White Blood Count 6.6 Thou/mm3 (3.6-11.0)
[2025-03-11] MEDS: ONDANSETRON INJ 2 MG/ML INJ 2 ML 4 MG IVP (12:55)
[2025-03-11] MEDS: MORPHINE SULF INJ 4 MG/ML VIAL IVP (12:56)
[2025-03-11 12:57] LABS: Alanine Aminotransferase 14 U/L (10-49); Albumin, Serum 4.5 gm/dL (3.5-5.0); Albumin/Globulin Ratio 1.9 (1.2-2.2); Alkaline Phosphatase 104 U/L (46-116); Anion Gap 10 (7-16); Aspartate Amino Transferase 20 U/L (0-34); BUN/Creatinine Ratio 16 Ratio (12-20); Bilirubin,Total 0.8 mg/dL (0.3-1.2); Blood Urea Nitrogen 18 mg/dL (9-23); Calcium 9.5 mg/dL (8.3-10.6); Calcium (Corrected) 9.5 mg/dL (8.5-10.1); Carbon Dioxide 27.6 mMol/L (20.0-31.0); Chloride 105 mMol/L (98-107); Creatinine (Component) 1.1 mg/dL (0.6-1.3); Estimated Creatinine Clearance 85.7 mL/min (>60); Globulin 2.4 gm/dL (2.3-3.5); Glucose 120 mg/dL (74-106); Lipase 34 U/L (12-53); Osmolality,Calculated 287 (275-295); Potassium 4.1 mMol/L (3.4-5.1); Sodium 143 mMol/L (136-145); Total Protein 6.9 gm/dL (5.7-8.2); eGFR 59 See Note
[2025-03-11] MEDS: RINGERS LACTATED 1000 ML 500 ML 250 ML IV (13:02)
[2025-03-11 13:03] VITALS: BP 109/69; PULSE 70; RESP 16; O2SAT 95
[2025-03-11 13:33] LABS: Collection Type, Urine Clean Catch
[2025-03-11 13:50] LABS: Bilirubin,Urine Negative (Negative); Blood,Urine Negative (Negative); Clarity,Urine Clear (Clear/Hazy); Color,Urine Lt-Yellow (Lt Yel-Yel); Glucose, Urine Negative (Negative); Ketones,Urine Negative (Negative); Leukocyte Esterase,Urine Negative (Negative); Nitrite,Urine Negative (Negative); PH,Urine 6.0 (5.0-7.0); Protein,Urine Negative (Neg - Trace); RBC,Urine 4 /hpf (0-3); Specific Gravity,Urine 1.029 (1.001-1.035); Squamous Epithelial Cell,Urine 5 /hpf (0-5); Urobilinogen,Urine Negative mg/dL (0.0-1.0); WBC,Urine 1 /hpf (0-5)
--- NOTE | 2025-03-11 14:41 | PD.RESHP ---
Documentation for date of: 03/11/25 Senior Resident Attestation: I have discussed the case with supervising physician and internist physician involved in the care of patient. I personally saw and examined patient and discussed the assessment and plan with the entire medical team, including attending. I agree with assessment and plan as documented below. - The patient's plan was discussed with attending Dr. Tami Patterson MD PGY2 Internal Medicine HPI History of Present Illness History of present illness: 59 year old female with PMHx gallstone pancreatitis s/p lap tejinder with intraoperative cholangiogram, HTN, asthma, T2DM treated with lifestyle, HLD, and 70lb weight loss over the last year. Patient admitted for intractable abdominal pain. ED Course Summary: Physical exam was benign other than TTP RUQ and epigastrium Vitals stable labs wnl, lipase wnl, t bili 0.8, ALP wnl, LFTS wnl UA unremarkable imaging: MRCP ordered, CTAP: minimal pancreatitis treatment: Morphine, zofran, LR 1.5L Consults: Dr. Kacy RAHMAN for concern for choledocolithiasis Patient examined bedside in no apparent distress, very pleasant woman. States she no longer has NV, but yesterday had intolerable pain 10/10 radiating to her back, the pain currently is 6/10 without radiation, and states the pain medication is helping. She endorses a 70lb weight loss though lifestyle and diet over the last year. States her pain is unchanged by positional movements such as leaning forward or lying down. She was recently admitted for acute pancreatitis where a lap tejinder was performed with cholangiogram intraoperatively which showed retained subcentimeter gallstones in the common bile duct. Recommended follow-up with gastroenterology for MRCP/ERCP, however pain worsened to the point that GI, Dr. Sinclair, recommended admitting patient overnight with MRCP and ERCP following day. She was taking macrobid for a few days for a UTI, but she currently has no urinary symptoms or discomfort. Code: Full Insulin: none Medical Hx: HTN, asthma, T2DM treated with lifestyle, HLD, and 70lb weight loss over the last year. 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 Exam Vital Signs Temp Pulse Resp BP Pulse Ox O2 Del Method 98.2 F 70 16 109/69 95 Room Air 03/11/25 11:54 03/11/25 13:03 03/11/25 13:03 03/11/25 13:03 03/11/25 13:03 03/11/25 13:03 Narrative Exam GENERAL APPEARANCE: AOx3. NAD, activity normal for age, well developed/ well nourished, no cyanosis, pallor, or diaphoresis. HEENT: Normocephalic atraumatic, no facial trauma, neck is supple. Lids/conjunctiva normal. Mucous membranes moist, nares normal, lips/teeth normal uvula midline without oral pharyngeal erythema, exudate or swelling TMs normal bilaterally. No lymphangitis/lymphedema. CARDIAC: Regular rate and rhythm, S1+S2 heard. No murmurs, rubs, or gallops noted RESPIRATORY: respiratory effort normal, speaks in full sentences, no tripod position, no accessory muscle use. Lungs clear to auscultation without rhonchi, wheezes, rales ABDOMINAL: NBS. Soft, ND. No evidence of fluid wave. +TTP on deep palpation of epigastrium. No pulsatile masses on exam, rebound tenderness, Bonds sign or pain over Mcburney's point. MUSCLES/EXTREMITIES: No abnormal range of motion, no swelling. DERM: Warm, pink and dry. No rashes, dermatoses, petechiae or lesions. NEUROLOGICAL: Speech is clear and appropriate. Normal level of consciousness. Gait and coordination are normal. 5/5 strength in all extremities. PSYCH: Normal mood and affect. Judgement/competence is appropriate Results: Labs 03/12/25 04:46 03/12/25 04:46 Labs: Short CBC 03/11/25 Range/Units 12:19 WBC 6.6 (3.6-11.0) Thou/mm3 Hgb 13.9 (12.0-16.0) g/dL Hct 42.8 (36.0-46.0) % Plt Count 280 D (140-440) Thou/mm3 BMP 03/11/25 12:19 Sodium 143 Potassium 4.1 Chloride 105 Carbon Dioxide 27.6 BUN 18 Creatinine 1.1 Glucose 120 H Calcium 9.5 Liver Function 03/11/25 Range/Units 12:19 Total Bilirubin 0.8 (0.3-1.2) mg/dL AST 20 (0-34) U/L ALT 14 (10-49) U/L Alkaline Phosphatase 104 (46-116) U/L Albumin 4.5 (3.5-5.0) gm/dL Urine 03/11/25 Range/Units 13:16 Urine Color Lt-Yellow (Lt Yel-Yel) Urine Clarity Clear (Clear/Hazy) Urine pH 6.0 (5.0-7.0) Ur Specific [place] 1.029 (1.001-1.035) Urine Protein Negative (Neg - Trace) Urine Glucose (UA) Negative (Negative) Quality Measures Quality Measures none Medications Home Medications and Allergies Home Medications ?Medication ?Instructions ?Recorded ?Confirmed ?Type hydrochlorothiazide 25 mg tablet 25 mg PO DAILY Hypertension 02/17/25 03/11/25 History Held on 03/12/25. Instructions: Resume on 03/21/25. Please hold until you see your primary care provider as your blood pressure has been well controlled in the hospital losartan 50 mg tablet 50 mg PO DAILY Hypertension 02/17/25 03/11/25 History nitrofurantoin 100 mg PO Q12H 03/11/25 03/11/25 History monohydrate/macrocrystals 100 mg capsule Allergies Allergy/AdvReac Type Severity Reaction Status Date / Time aspirin Allergy Severe Hives Verified 03/11/25 11:38 Penicillins Allergy Severe Hives Verified 03/11/25 11:38 Visit Medications Acetaminophen (Acetaminophen 325 Mg Tablet) 650 mg PO Q6H PRN PRN Reason: Fever >100.4 or pain 1-3 Stop: 04/10/25 14:30 Lactated Ringer's (Lactated Ringers) 500 mls @ 250 mls/hr IV .Q2H ONE Stop: 03/11/25 14:59 Last Infusion: 03/11/25 14:12 Dose: 0 mls/hr Lactated Ringer's (Lactated Ringers) 1,000 mls @ 75 mls/hr IV .[id number] [facility] Stop: 04/10/25 14:59 Morphine Sulfate (Morphine Sulf Inj 4 Mg/Ml Vial) 4 mg IVP Q1H PRN PRN Reason: PAIN SCALE 4-10(Mod-Sev Stop: 03/15/25 12:07 Last Admin: 03/11/25 12:56 Dose: 4 mg Ondansetron HCl (Ondansetron Inj 2 Mg/Ml Inj 2 Ml) 4 mg IVP Q6H PRN; Protocol PRN Reason: NAUSEA OR VOMITING Stop: 04/10/25 14:30 Pantoprazole Sodium (Pantoprazole Inj 40 Mg Vial) 40 mg IVP QDAY MARLENI Stop: 04/10/25 14:44 Discontinued Medications Lactated Ringer's (Lactated Ringers) 500 mls @ 250 mls/hr IV .Q2H [facility] Stop: 04/10/25 12:07 Last Admin: 03/11/25 13:37 Dose: Not Given Morphine Sulfate (Morphine Sulf Inj 4 Mg/Ml Vial) 4 mg IVP X1 ONE Stop: 03/11/25 11:55 Last Admin: 03/11/25 12:58 Dose: Not Given Ondansetron HCl (Ondansetron Inj 2 Mg/Ml Inj 2 Ml) 4 mg IVP X1 ONE; Protocol Stop: 03/11/25 11:55 Last Admin: 03/11/25 12:55 Dose: 4 mg Ondansetron HCl (Ondansetron Inj 2 Mg/Ml Inj 2 Ml) 4 mg IVP X1 ONE; Protocol Stop: 03/11/25 12:09 Last Admin: 03/11/25 12:58 Dose: Not Given Assessment & Plan Plan #Intractable abdominal pain #Hx of choledocolithiasis #Hx of gallstone pancreatitis #C/f pancreatitis DDx: gallstone pancreatitis, superior mesenteric artery syndrome Yesterday epigastric pain was worsening 10/10 radiating to her back, today that pain has resolved with help of pain medications. Recent 70lb weight loss though diet, but pain is unchanged by positioning, laying forward or backwards. TTP on deep palpation of epigastrium ALP wnl, T bili 0.8, Lipase not elevated CTAP: minimal pancreatitis MRCP: no common bile duct or common hepatic duct stones, no pancreatic edema or pancreatic mass Plan: -Dr. Woodruff consulted, believes stone passed with MRCP -CRP pending:__ -IV LR -Tylenol Pain 1-3 -Narco 5mg PO PRN Pain 4-6 -Morphine 2mg IVP Q4hr PRN pain 7-10 -CLD advance as tolerated -Encourage ambulation ---Chronic---- #Hx of HTN Currently normotensive Plan: -Hydralazine 10mg IVP Q6HR PRN -Losartan 25mg PO QD #Hx of asthma No active symptoms, lungs CTA, not used inhaler in months Plan: -Duonebs 3mL INH Q4HRRT PRN #Hx of T2DM controlled with lifestyle Plan: -ISS -Bedside glucose checks ACHS #Hx of HLD Controlled with lifestyle, lost 70lbs in last year and a half Plan: -FUP lipid panel Health Maintenance: Code status: Full Insulin: None DVT prophylaxis: SCD GI prophylaxis: Protonix Bowel: Zofran Diet: CLD Jeong: No Lines: PIV Supplemental O2: None Disposition: Observation Patient seen and reviewed with attending Dr. Garrett and supervising resident Dr. Patterson. Note written by Andrew Simeon MD PGY-1 Attending Provider Attestation/Addendum I have seen and examined the patient. I was physically present for the yancey portions of the services provided including history, physical exam, diagnosis, treatment plans and orders. I agree with assessment and plan of care as documented by residents. After examination of the patient and review of the clinical data I feel that this patient needs observation in the hospital for further treatment/evaluation. Even though this note was carefully revised there may still be minor errors in instrument maker and repairer due to voice recognition software. Chico Garrett MD
[2025-03-11 15:14] VITALS: PULSE 60; RESP 18; RESP 96
[2025-03-11 15:16] VITALS: BP 121/76; PULSE 61; RESP 16; TEMP 36.8; O2SAT 96
[2025-03-11] MEDS: RINGERS LACTATED 1000 ML 1,000 ML 250 ML IV ×2 (16:01→20:23)
[2025-03-11 16:43] VITALS: BP 115/81; PULSE 58; RESP 16; TEMP 36.5; O2SAT 98
[2025-03-11 17:59] VITALS: BMI 53.8
--- NOTE | 2025-03-11 18:47 | PD.IMCONS ---
HPI Data of Consult Requesting Physician: Chico Garrett MD Primary Care Provider: Physician No Primary/Family Consult Narrative History of present illness: Chief complaint: Abdominal pain History of present illness: Patient is a 59-year-old female who has a history of cholelithiasis status post cholecystomy with IOC which showed common bile duct stone. Patient was seen and examined in the office and was scheduled for outpatient ERCP. Patient developed severe abdominal pain came to the ER with severe abdominal pain got admitted had an MRCP which did not show any common bile duct stone. Patient was seen and examined on the floor does not have abdominal pain no other associated symptoms. cc:: cc: Chico Garrett MD Review of Systems Review of Systems Narrative Review of Systems: Was reviewed negative except positive pertinent symptoms and history of presenting illness clinic. Meds Home Medications and Allergies Home Medications ?Medication ?Instructions ?Recorded ?Confirmed ?Type hydrochlorothiazide 25 mg tablet 25 mg PO DAILY Hypertension 02/17/25 03/11/25 History losartan 50 mg tablet 50 mg PO DAILY Hypertension 02/17/25 03/11/25 History nitrofurantoin 100 mg PO Q12H 03/11/25 03/11/25 History monohydrate/macrocrystals 100 mg capsule Allergies Allergy/AdvReac Type Severity Reaction Status Date / Time aspirin Allergy Severe Hives Verified 03/11/25 11:38 Penicillins Allergy Severe Hives Verified 03/11/25 11:38 Exam Vital Signs Temp Pulse Resp BP Pulse Ox O2 Del Method 97.7 F 58 L 16 115/81 98 Room Air 03/11/25 16:43 03/11/25 16:43 03/11/25 16:43 03/11/25 16:43 03/11/25 16:43 03/11/25 16:43 Routine Abdominal Exam Comments: Abdominal exam benign mild right upper quadrant tenderness. Results Labs 03/11/25 12:19 03/11/25 12:19 Labs: Short CBC 03/11/25 Range/Units 12:19 WBC 6.6 (3.6-11.0) Thou/mm3 Hgb 13.9 (12.0-16.0) g/dL Hct 42.8 (36.0-46.0) % Plt Count 280 D (140-440) Thou/mm3 BMP 03/11/25 12:19 Sodium 143 Potassium 4.1 Chloride 105 Carbon Dioxide 27.6 BUN 18 Creatinine 1.1 Glucose 120 H Calcium 9.5 Liver Function 03/11/25 Range/Units 12:19 Total Bilirubin 0.8 (0.3-1.2) mg/dL AST 20 (0-34) U/L ALT 14 (10-49) U/L Alkaline Phosphatase 104 (46-116) U/L Albumin 4.5 (3.5-5.0) gm/dL Urine 03/11/25 Range/Units 13:16 Urine Color Lt-Yellow (Lt Yel-Yel) Urine Clarity Clear (Clear/Hazy) Urine pH 6.0 (5.0-7.0) Ur Specific [place] 1.029 (1.001-1.035) Urine Protein Negative (Neg - Trace) Urine Glucose (UA) Negative (Negative) Assessment and Plan Additional Assessment & Plan Additional Plan: Assessment: History of cholelithiasis with IOC showed choledocholithiasis Abdominal pain MRCP did not show any common bile duct stone Exam plan of care: Continue current medication Proceed with aggressive IV fluid 250 cc of LR Check LFTs tomorrow morning Advance diet as per toleration Can be discharged tomorrow morning Follow-up as needed.
[2025-03-11 19:40] LABS: C-Reactive Protein < 0.5 mg/dL (0.0-0.9)
[2025-03-11 20:00] VITALS: BP 135/71; PULSE 58; RESP 17; TEMP 36.3; O2SAT 99
[2025-03-12] VITALS: BP 99/57; PULSE 64; RESP 18; TEMP 36.6; O2SAT 97
[2025-03-12 03:33] VITALS: PULSE 67; RESP 18; RESP 98
[2025-03-12 04:00] VITALS: BP 108/57; PULSE 60; RESP 18; TEMP 36.5; O2SAT 97
[2025-03-12 05:22] LABS: Basophils # (Auto) 0.1 Thou/mm3 (0.0-0.2); Basophils % (Auto) 1 % (0-2.5); Eosinophils # (Auto) 0.3 Thou/mm3 (0.0-0.5); Eosinophils % (Auto) 5 % (0-10); Hematocrit 37.0 % (36.0-46.0); Hemoglobin 11.9 g/dL (12.0-16.0); Immature Granulocytes Auto 0.02 Thou/mm3 (0.00-0.00); Lymphocytes # (Auto) 2.0 Thou/mm3 (1.0-4.8); Lymphocytes % (Auto) 32 % (10-50); Mean Corpuscular HGB Conc 32.2 g/dl (31.0-37.0); Mean Corpuscular Hemoglobin 30.1 pg (25.0-35.0); Mean Corpuscular Volume 94 fL (80-100); Monocytes # (Auto) 0.5 Thou/mm3 (0.0-0.8); Monocytes % (Auto) 8 % (0-12); Neutrophils # (Auto) 3.5 Thou/mm3 (1.8-7.7); Neutrophils % (Auto) 55 % (37-80); Nucleated Red Blood Cell # 0.00 Thou/mm3 (0.00-0.00); Nucleated Red Blood Cell % 0 /100 WBC (0); Platelet Count 175 Thou/mm3 (140-440); RDW Standard Deviation 47.1 fL (36.4-46.3); Red Blood Count 3.95 Miln/mm3 (4.00-5.20); White Blood Count 6.3 Thou/mm3 (3.6-11.0)
[2025-03-12 06:29] LABS: Alanine Aminotransferase 12 U/L (10-49); Albumin, Serum 3.8 gm/dL (3.5-5.0); Albumin/Globulin Ratio 2.0 (1.2-2.2); Alkaline Phosphatase 82 U/L (46-116); Anion Gap 9 (7-16); Aspartate Amino Transferase 20 U/L (0-34); BUN/Creatinine Ratio 13 Ratio (12-20); Bilirubin,Total 0.7 mg/dL (0.3-1.2); Blood Urea Nitrogen 13 mg/dL (9-23); Calcium 8.8 mg/dL (8.3-10.6); Calcium (Corrected) 9.0 mg/dL (8.5-10.1); Carbon Dioxide 28.3 mMol/L (20.0-31.0); Cardiac Risk Estimate 4.8 RATIO (3.7-5.6); Chloride 106 mMol/L (98-107); Cholesterol 188 mg/dL (132-200); Creatinine (Component) 1.0 mg/dL (0.6-1.3); Estimated Creatinine Clearance 94.2 mL/min (>60); Globulin 1.9 gm/dL (2.3-3.5); Glucose 93 mg/dL (74-106); HDL Cholesterol 39 mg/dL (40-60); LDL Cholesterol,Calculated 123 mg/dL (0-130); Magnesium 1.8 mg/dL (1.6-2.6); Osmolality,Calculated 285 (275-295); Phosphorous 4.7 mg/dL (2.4-5.1); Potassium 4.1 mMol/L (3.4-5.1); Sodium 143 mMol/L (136-145); Thyroid Stimulating Hormone 4.01 uIU/mL (0.55-4.78); Total Protein 5.7 gm/dL (5.7-8.2); Triglycerides 128 mg/dL (30-150); eGFR > 60 See Note
[2025-03-12 07:26] VITALS: PULSE 77; RESP 18; RESP 95
--- NOTE | 2025-03-12 07:55 | PD.RESDS ---
Planned Discharge Date 03/12/25 DS: Providers Provider Date of admission: 03/11/25 15:56 Primary care physician: Physician No Primary/Family Admitting Provider: Chico Garrett MD Attending Provider on Admission: Chico Garrett MD Consults: 03/11/25 13:25 Consult to Gastroenterology Stat Comment: Consulting Provider: Awais Aguilar Attending Provider on DC: Chico Garrett MD Discharging Provider: Chico Garrett MD DS: Diagnosis Problem List Completed Was Problem List Reviewed/Reconciled?: Yes Hospital Course Hospital Course Hospital course: Summary: 59 year old female with PMHx gallstone pancreatitis s/p lap tejinder with intraoperative cholangiogram showing small stones in the common bile duct (02/20/2025), HTN, asthma, T2DM treated with lifestyle, HLD, and 70lb weight loss over the last year. Patient admitted for intractable abdominal pain acute pancreatitis and choledocolithiasis that likely resolved after MRCP performed. ED Course: Vitals stable Vitals BP 136/84, HR 80, RR 18, T 98.2 spO2 95% labs wnl, lipase wnl, t bili 0.8, ALP wnl, LFTS wnl UA unremarkable imaging: MRCP ordered, CTAP: minimal pancreatitis treatment: Morphine, zofran, LR 1.5L Consults: Dr. Kacy RAHMAN for concern for choledocolithiasis Hospital Course: Patient was treated in internal medicine for for acute pancreatitis and started on lactated Ringer's with oral hydration encouraged as patient tolerated insulin and diet advanced. Although patient's lipase within normal limits, patient did complain of pain at left upper quadrant and admitted CT on 102 also supported pancreatitis. Patient's symptoms improved and diet was advanced to regular. Pancreatitis likely secondary to gallstone that passed in common bile duct given history of recent cholecystectomy that noted likely gallstones in the bile duct. Patient also complained of right upper qudarant pain with elevated transiminities upon admission with recent cholecystectomy, there was likely choledocholithiasis that resolved after passage of stone given MRCP findings did not note stones in the common or hepatic bile duct. Overall chornic medication resumed, including Losartan, but hydrochorothiazide held given blood pressure was within normal limits. Gastroenterology consulted, no need for ERCP per recommendations. Instructions: -HOLD your hydrochlorothiazide as your blood pressure as has been within normal limits, please follow up with your primary care provider for further adjustments. -Continue all other medication as prescribed. -as needed follow up with gastroenterology --Please follow up with your primary care provider within one week of discharge -If your symptoms worsen,please seek immediate medical attention and return to your nearest emergency room -If you do not have a primary care provider, you may follow up at the [facility] at [address] [place] [address] [address], [place] [address], #Pancreatitis, resolved. #Intractable abdominal pain #Hx of choledocolithiasis #Hx of gallstone pancreatitis #Hx of HTN #Hx of asthma #Hx of T2DM controlled with lifestyle Case discussed with attending, Dr. Garrett and co-resident, Dr. Patterson Senior Resident Attestation: I have discussed the case with supervising physician and international organizer physician involved in the care of patient. I personally saw and examined patient and discussed the assessment and plan with the entire medical team, including attending. I agree with assessment and plan as documented above. - The patient's plan was discussed with attending Dr. Tami Patterson MD PGY2 Internal Medicine Time Spent with Patient Time attestation: Total time spent providing and/or coordinating discharge services: 36 minutes Time spent: Greater than 30 minutes Exam Vital Signs Temp Pulse Resp BP Pulse Ox O2 Del Method 97.7 F 60 18 108/57 L 97 Room Air 03/12/25 04:00 03/12/25 04:00 03/12/25 04:00 03/12/25 04:00 03/12/25 04:00 03/12/25 04:00 Narrative Exam General Appearance: Alert & Oriented X3, well-nourished female who is lying in bed in no acute distress, improved since admission. HEENT: Skull symmetrical and atraumatic. Conjunctivae pink and moist. Pupils equal, round, reactive to light and accommodation (PERRL). External ear without lesion or discharge. Straight, nares patient, mucosa pink, no discharge. No thyroid nodule appreciated. No cervical lymphadenopathy. Cardio: Normal Rate and Rhythm with S1 and S2 heart sounds. No murmurs or extra heart sounds auscultated. No bruits on carotid auscultation. No peripheral edema or cyanosis. Lungs: Symmetric with good expansion. Chest and back non-tender. Breath sounds vesicular without crackles, wheezing or rhonchi Abdomen: Non-tender, Non-distended, Normal Reactive Bowel Sounds Neuro: Alert, cooperative, oriented to person, place, and time. Speech clear. CN grossly intact. Upper motor strength 5/5 and Lower motor strength 5/5. Sensation intact. Discharge Plan Plan Patient Disposition: HOME (Self Care) Patient condition on transfer: Stable Care Plan Goals: Instructions: -HOLD your hydrochlorothiazide as your blood pressure as has been within normal limits, please follow up with your primary care provider for further adjustments. -Continue all other medication as prescribed. -as needed follow up with gastroenterology --Please follow up with your primary care provider within one week of discharge -If your symptoms worsen,please seek immediate medical attention and return to your nearest emergency room -If you do not have a primary care provider, you may follow up at the [facility] [address], [place] [address], Prescriptions/Referrals Prescriptions/Med Rec: Continued losartan 50 mg tablet 50 mg PO DAILY nitrofurantoin monohyd/m-cryst 100 mg capsule 100 mg PO Q12H Patient Comments: TAKE 1 CAPSULE BY MOUTH EVERY 12 HOURS WITH FOOD Held hydrochlorothiazide 25 mg tablet 25 mg PO DAILY Hold Instructions: Resume on 03/21/25. Please hold until you see your primary care provider as your blood pressure has been well controlled in the hospital Discontinued hydrocodone-acetaminophen 5-325 mg tablet 1 tab PO Q12H MDD 2 tab PRN (Reason: pain) Qty: 14 0RF Referrals: No Primary/Family,Physician [Primary Care Provider] Patient/Caregiver Discharge Instructions Education Materials: Pancreatitis Acute Dc, ED Abdominal Pain Gallstone Poss Print Language: Sri Lankan Stand Alone Forms: Irene Award Info., Patient Portal Info Letter, Work/Release Restrictions Discharge Order Discharge Orders: Discharge (Routine); Ordered 03/12/25 Ordered By: Angle Patterson Quality Discharge Quality Measures VTE prophylaxis Attestestation Attestation I have seen and examined the patient. I was physically present for the yancey portions of the services provided including history, physical exam, diagnosis, treatment plans and orders. I agree with assessment and plan of care as documented by residents. Even though this this note was carefully revised there may still be minor errors in journeyman machinist due to voice recognition software. Chico Garrett MD
[2025-03-12 08:00] VITALS: BP 115/89; PULSE 76; RESP 18; TEMP 36.5; O2SAT 94
[2025-03-12 08:13] VITALS: BP 108/57; PULSE 60
[2025-03-12] MEDS: LOSARTAN POTASSIUM 25 MG TABLET PO (08:13)
--- NOTE | 2025-03-12 11:04 | PC.SS ---
Patient April Neal is a 59 Year olf female admitted for Acute Pancreatitis. SS met with patient to discuss discharge plan and confirm demographic information. Patient confirmed demographic and contact information is correct on face sheet. Pt resides at home with her adult children. Patient is able to ambulate without any DME. Patient is able to complete all ADL's independently. Patient?s pharmacy of choice is [facility] [address]. Patient reports her son, Hakeem Moreno medical decision maker. Patient?s choice is to return home upon discharge. At time of discharge patient's son will provide transportation. D/C plan: Return home Next of Kin: Hakeem Moreno, son, phone# [phone] PCP: Dr. Guru Allen
== END 2025-03-12 11:14 | disposition home or self-care (01) ==
LOC: SERX 14:13 → SERHOLD 16:18 → S3NX 17:42
PROVIDERS: Internal Medicine Gastroenterology; Nurse Practitioner Family; Admitting Provider Student in an Organized Health Care Education/Training Program; Emergency Provider Family Medicine; Visit Provider Student in an Organized Health Care Education/Training Program
DX: K85.90 Acute pancreatitis without necrosis or infection, unspecified (principal); J45.909 Unspecified asthma, uncomplicated; E11.9 Type 2 diabetes mellitus without complications; I10 Essential (primary) hypertension; Z90.49 Acquired absence of other specified parts of digestive tract; E78.5 Hyperlipidemia, unspecified
CPT/HCPCS: 36415; 74181; 80053; 80061; 81001; 83690; 83735; 84100; 84443; 85025; 86140; 87081; 87086; 96361; 96374; 96375; 96376; 99284; G0378; J2270; J2405; J2470; J7120; A9270